=== PATIENT | female | born 1965 | race Caucasian/White ===

== ENCOUNTER 2017-12-17 14:46 | Inpatient (IN) | payer OTHER ==
[2017-12-17 16:00] LABS: #Eosinphils 0.1 thou/uL (0.0-0.7); #Lymphocytes 2.2 thou/uL (1.20-3.40); #Monocytes 0.6 thou/uL (0.11-0.59); #Neutrophils 4.2 thou/uL (1.40-6.50); %Basophils 0.6 % (0.0-1.0); %Eosinophils 1.6 % (0.0-10.0); %Lymphocytes 31.2 % (21.0-51.0); %Monocytes 7.9 % (0.0-10.0); %Neutrophils 58.7 % (42.0-75.0); Hemoglobin 15.2 g/dL (12.0-16.0); Mean Corpuscular HGB CONC 35.7 g/dL (32.0-36.0); Mean Corpuscular Volume 83.8 fL (78.0-98.0); Mean Platelet Volume 8.7 fL (7.4-10.4); Platelet Count 241 thou/uL (130-400); Red Blood Cell (RBC) Count 5.08 mill/uL (4.20-5.40); White Blood Cell (WBC) Count 7.1 thou/uL (4.8-10.8)
[2017-12-17 16:09] LABS: ALT (SGPT) 36 U/L (8-55); AST (SGOT) 28 U/L (5-34); Albumin 4.2 g/dL (3.5-5.0); Alkaline Phosphatase 91 U/L (40-150); Anion Gap 14 mmol/L (10-20); BUN (Urea Nitrogen) 11 mg/dL (9.8-20.1); Bilirubin, Total 0.5 mg/dL (0.2-1.2); Calc. Creatinine Clearance 0 mL/min (70-130); Calcium 9.6 mg/dL (7.8-10.44); Carbon Dioxide 23 mmol/L (22-29); Chloride 104 mmol/L (98-107); Estimated GFR-MDRD 74; Globulin 3.1 g/dL (2.4-3.5); Glucose 107 mg/dL (70-105); Potassium 3.4 mmol/L (3.5-5.1); Protein, Total 7.3 g/dL (6.0-8.3); Sodium 138 mmol/L (136-145)
[2017-12-17 16:12] LABS: CKMB 0.5 ng/mL (0-6.6); Troponin I Less than 0.010 ng/mL (< 0.028)
[2017-12-17 16:21] LABS: Bilirubin Negative (Negative); Blood, Urine Negative (Negative); Clarity Clear (Clear); Glucose, Urine (Dipstick) Negative (Negative); Leukocyte Negative (Negative); Nitrite Negative (Negative); Protein, Urine (Dipstick) Negative (Neg-Trace); Urobilinogen 0.2 mg/dL (0.2-1.0)
[2017-12-17] MEDS ORDERED: Acetaminophen 500 MG TAB ONE (17:11)
[2017-12-17] MEDS ORDERED: IMMUNE GLOBULIN FS SCH (19:00)
--- NOTE | 2017-12-17 19:52 | CT ---
CT BRAIN NONCONTRAST: 12/17/17 HISTORY: 52-year-old female with "progressive ascending weakness." FINDINGS: There is no midline shift or any other mass effect. There is no evidence of acute intracranial hemor rhage, large cortical infarct, obstructive hydrocephalus, or extraaxial fluid collection. The calvar ium is intact. IMPRESSION: No acute intracranial findings. jn [] POS: [facility]
[2017-12-17 20:09] VITALS: BMI 30.1
[2017-12-17] MEDS: OCTAGAM 10% 60 GM, OCTAGAM 10% 10 GM in Premix Bag 1 BAG IVPB SCH (21:20)
[2017-12-18 04:31] LABS: Anion Gap 11 mmol/L (10-20); BUN (Urea Nitrogen) 11 mg/dL (9.8-20.1); Calc. Creatinine Clearance 90 mL/min (70-130); Calcium 8.9 mg/dL (7.8-10.44); Carbon Dioxide 23 mmol/L (22-29); Cardiac Risk 4.9 (Less than 4.5); Chloride 100 mmol/L (98-107); Cholesterol 170 mg/dl (< 200 Desired); Estimated GFR-MDRD 61; Glucose 120 mg/dL (70-105); HDL Cholesterol 35 mg/dL (>60 Neg Risk); LDL Cholesterol, Calculated 123 mg/dL; Potassium 3.4 mmol/L (3.5-5.1); Sodium 131 mmol/L (136-145); Triglycerides 58 mg/dL (Less than 150)
[2017-12-18 06:47] LABS: #Eosinphils 0.1 thou/uL (0.0-0.7); #Lymphocytes 0.7 thou/uL (1.20-3.40); #Monocytes 0.5 thou/uL (0.11-0.59); #Neutrophils 4.4 thou/uL (1.40-6.50); %Basophils 0.4 % (0.0-1.0); %Eosinophils 1.5 % (0.0-10.0); %Monocytes 9.2 % (0.0-10.0); %Neutrophils 76.9 % (42.0-75.0); Hemoglobin 13.3 g/dL (12.0-16.0); Mean Corpuscular HGB CONC 32.9 g/dL (32.0-36.0); Mean Corpuscular Hemoglobin 29.3 pg (27.0-31.0); Platelet Count 179 thou/uL (130-400); RBC Distribution Width 11.5 % (11.5-14.5); Red Blood Cell (RBC) Count 4.53 mill/uL (4.20-5.40); White Blood Cell (WBC) Count 5.7 thou/uL (4.8-10.8)
--- NOTE | 2017-12-18 08:06 | HP ---
TIME OF EVALUATION: 8:00 p.m. PRIMARY CARE PHYSICIAN: Dr. Marian Camarena. CODE STATUS: FULL CODE. CHIEF COMPLAINT: "Severe weakness in my legs and being unable to walk." HISTORY OF PRESENT ILLNESS: This is a 52-year-old female patient with past medical history of mening itis when she was 28 years old, asthma, came to the hospital after having severe bilateral leg weakne ss, patient has been unable to walk, being very difficult to stand up. The weakness started for the past week, it has been getting worse gradually, with no clear triggers except that patient got flu sh ot on the and also having a week of diarrhea for 5 days, symptoms are severe, no alleviating fac tors. The patient was seen in the ER. Neurology was consulted and there is concern for GBS. Harsha salgado has been admitted to the hospital to receive IVIG. We will follow Neurology recommendations. REVIEW OF SYSTEMS: No fever, chills, or generalized weakness. Respiratory: No cough, sputum produc tion, or shortness of breath. Cardiovascular: No chest pain or palpitation. Gastrointestinal: No nausea or vomiting. The patient had diarrhea the past week that has stopped for now. No abdominal p ain. Central Nervous Systems: No dizziness, headache, or feeling lightheaded. Patient has been kat ble to walk due to severe bilateral lower extremity weakness. Genitourinary: No burning on urinatio n. Extremities: No leg swelling. All other systems were reviewed and negative except for the findi ngs mentioned above. PAST MEDICAL HISTORY: As mentioned in the HPI. PAST SURGICAL HISTORY: Orthopedic surgery right wrist, cholecystectomy, tonsillectomy, left breast l umpectomy. PSYCHIATRIC HISTORY: Anxiety and depression. SOCIAL HISTORY: No drugs. No smoking history. KNOWN ALLERGIES: PENICILLIN, reaction with rash. REPORTED MEDICATIONS: Wellbutrin, Singulair, Astelin, Calcitrate. PHYSICAL EXAMINATION: VITAL SIGNS: On presentation, blood pressure 155/108 with heart rate 100, respiratory rate 20, tempe rature 98.8, pain 6/10, oxygen saturation 98. GENERAL APPEARANCE: The patient is alert, oriented, not in any acute distress. HEENT: Eyes: normal conjunctivae. Moist oral mucosa. Anicteric. NECK: No JVD. RESPIRATORY: Bilateral air entry. No rales, no wheezes. Symmetric expansion. CARDIOVASCULAR: Normal rate, regular rhythm. No murmurs, no gallops. EXTREMITIES: No edema. ABDOMEN: Soft, normal bowel sounds. MUSCULOSKELETAL: Baseline range of motion and strength. No tenderness. Peripheral pulses are prese nt. Capillary refill seems to be intact. SKIN: Warm and intact. No pallor, no rash, no redness. NEUROLOGIC: Baseline sensory. The patient has bilateral lower extremities and some degree upper ext remity weakness. Speech is normal. Cranial nerves seem to be intact. PSYCHIATRIC: The patient is in a good mood. No anxiety. Oriented, optimal judgment. IMAGING: EKG was reviewed. The patient has normal sinus rhythm at the rate of 77, NE 148. No evide nce of any acute ischemic findings. CT brain, no acute intracranial findings. LABORATORY DATA: White count 7.1, hemoglobin 15.2, MCV 83.8. Chemistry: Sodium 138, potassium 3.4, chloride 104, carbon dioxide 23, anion gap 14, BUN 11, creatinine 0.8, GFR 74, glucose 107, calcium 9.6, total bilirubin 0.5, AST 28, ALT 36, alkaline phosphatase 91. Troponin was negative. Albumin w as normal. Urine was negative. ASSESSMENT AND PLAN: The patient will be placed in the hospital with following medical problems: 1. 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 Patient has bilateral lower and some degree upper extremity we akness, with inability to walk properly. Neuro has been consulted for further recommendation. The p atient receiving IVIG for now. We will do rest of stroke protocol looking for any diagnosis in the d ifferential. 2. Recent history of diarrhea. We will test stools if diarrhea is still present. Looking specifica lly for Campylobacter given association with Guillain-[place] syndrome. We will treat accordingly. 3. History of asthma, this is currently stable, no need for intubation. 4. Deep venous thrombosis prophylaxis. 5. Risk assessment: The patient has risk to severe acute neurological changes began on of this month.
[2017-12-18] MEDS: Ondansetron HCl/PF 4 MG/2 ML Vial IVP PRN ×2 (08:35→19:17)
[2017-12-18] MEDS: Acetaminophen 325 MG TAB PO PRN ×2 (08:35→20:38)
[2017-12-18] MEDS ORDERED: Enoxaparin Sodium 40 MG/0.4 ML SYRINGE SC SCH (09:00)
[2017-12-18] MEDS: ALPRAZolam 0.25 MG TAB PO PRN ×3 (10:21→20:38)
[2017-12-18] MEDS ORDERED: Bupropion 150 MG XL TAB PO SCH (10:30)
--- NOTE | 2017-12-18 11:21 | RAD ---
PORTABLE CHEST: History: Asthma. FINDINGS: Heart size and mediastinum are within normal limits. The lungs are clear of infiltrates. No significa nt bony findings. IMPRESSION: No active intrathoracic disease. POS: [facility]
--- NOTE | 2017-12-18 13:21 | MRI ---
MRI BRAIN: 12/18/2017 PROVIDED CLINICAL HISTORY: TIA. FINDINGS: The ventricular system appears normal in size and morphology. There is no evidence for intracranial hemorrhage or mass effect. The extracranial soft tissues and osseous structures demonstrate an unrem arkable MR appearance. No evidence for restricted diffusion to suggest a recent infarction. Appropr iate flow voids are seen within the major intracranial vessels. No shift of the midline structures. The basilar cisterns appear patent. There is a single, nonspecific, punctate focus of FLAIR and T2 signal alteration within the right caceres radiata, which may reflect chronic microvascular ischemic c hange. IMPRESSION: No evidence for restricted diffusion to suggest recent infarction. POS: [facility]
--- NOTE | 2017-12-18 14:09 | CON ---
DATE OF CONSULTATION: 12/18/2017 HISTORY OF PRESENT ILLNESS: Ms. Kim Cisse is a pleasant 52-year-old female who has a very inte resting history, presented with lower extremity weakness, gradually progressive course of about 2 wee ks. On of this morning, she got the flu shot. On the of this month, November, she got ve rtigo, nausea, sinus infection and took a course of Z-Kris and meclizine. On the , she got diarrh ea several times and became weak. On the several days later, she has had difficulty walking in the campus. 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 She became weak, fatigued, weakness in the legs, some numbness. She went to see a primary care physi yesenia, Dr. Camarena, a West Nile titer was ordered. On the , symptoms got progressively worse. She had further tingling and lower extremity weakness, she went back and was told to go to the ER. As of yesterday morning, she ER, but apparently weakness progressed upwards to which she says she zhang d difficulty walking and was unable to lift the legs up from the bed. Last night, she received a dose of IVIG. Neurology was consulted. They have yet to see the patient. PAST MEDICAL HISTORY: Extensively outlined. She has had multiple allergies, apparently has asthma, anxiety, depression. PAST SURGICAL HISTORY: Right wrist surgery, cholecystectomy, tonsillectomy, left breast lumpectomy. ALCOHOL: Minimal. TOBACCO: None. CHRONIC MEDICATIONS: Singulair 10, Wellbutrin 150, azelastine spray several times a day. ALLERGIES: PENICILLIN. SOCIAL HISTORY: Works for the [employer]. REVIEW OF SYSTEMS: A 10-point negative. PHYSICAL EXAMINATION: GENERAL: Awake, alert and responsive, in no distress. VITAL SIGNS: Sats are 95%, respiration 12, temperature 98, pulse 80, blood pressure is 139/78. CHEST: Decreased breath sounds without any wheezing. CARDIAC: Normal S1, S2, no gallops. ABDOMEN: Soft, no masses. LABORATORY DATA: Sodium 131. Electrolytes are normal. Potassium 5.7. IMAGING: She had a CT of the brain done last night, which showed no intracranial process. IMPRESSION: 1. Ascending paralysis, received IVIG last night with marked improvement. 2. History of depression. 3. History of allergic rhinitis. 4. Have recent flu shot intake. 5. Depression. PLAN: Continue 5 days IVIG, Lovenox, deep venous thrombosis prophylaxis. PT and supportive care. Serial exam. We will follow. This is a consultation note of 70 minutes, in which 50% spent in direct patient care.
[2017-12-18 19:42] LABS: CSF Source CSF; Clarity Clear (Clear); RBC Count - Manual 383 /cumm (None Seen); Tube # 4; WBC/NonHematics Count - Manual 0 /cumm (0-5)
[2017-12-18 19:54] LABS: CSF, Glucose 62 mg/dl (40-70); CSF, Protein 23 mg/dL (15-40)
[2017-12-18 20:58] LABS: Color Of CSF Supernatant COLORLESS (Colorless); Tube # 2; Unspun CSF Color COLORLESS (Colorless)
[2017-12-18] MEDS: OCTAGAM 10% 60 GM, OCTAGAM 10% 10 GM in Premix Bag 1 BAG IVPB SCH (21:00)
--- NOTE | 2017-12-18 21:14 | CON ---
DATE OF CONSULTATION: 12/18/2017 CONSULTING PHYSICIAN: Hospitalist Service. 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 PLAN: 1. Continue IVIG as ordered. 2. Lumbar puncture for routine measurements of cell count, glucose, protein, and viral studies inclu ding herpes and West Nile. Ms. Cisse is a 52-year-old white female with no significant past problems. She recently has had a diarrheal illness that preceded the development of some tingling in her feet. The tingling progresse d up the legs to about the knee level. She noticed a bit of tingling in her hands. She noticed that she was having more trouble walking across campus. She decided to go to the emergency room, which s he walked into. By the time her evaluation was complete, she was unable to walk any longer in an ind ependent fashion. She was transferred here last night and started on gamma globulin. She reports th at she has seen an improvement in her leg strength compared to last night. The tingling in her hands has gotten better. She denies any tingling around the face, difficulty swallowing, shortness of ewa ath, double vision, vertigo, or headache. PAST MEDICAL HISTORY: Otherwise negative. ALLERGIES: PENICILLIN. SOCIAL HISTORY: No tobacco or alcohol use. FAMILY HISTORY: Noncontributory. REVIEW OF SYSTEMS: No incontinence. PHYSICAL EXAMINATION: GENERAL: She is a well-nourished, middle-aged woman in no distress. VITAL SIGNS: Stable. She is afebrile. HEENT: Pupils are equal and reactive. Conjunctivae clear. Oropharynx clear. NECK: Supple. SKIN: Clear. EXTREMITIES: No cyanosis. NEUROLOGIC: She is alert and appropriate. Her speech is fluent and clear. Cranial nerves II-XII ar e intact. Motor exam shows some minimal give-way weakness in the upper extremities. There is more s ignificant distal weakness in both legs involving ankle flexion, toe extension, plantar flexion in th e range of 3/5. Reflexes at the ankles are absent, 2+ at the knees and elbows. Plantar responses we re downgoing. Gait was not tested. No abnormal movements were seen. Sensory testing shows diminish ed sharp touch in the feet bilaterally. EKG, normal sinus rhythm. Lumbar puncture is pending. 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 I agree with continuing treatment and performing a lumbar puncture to confirm an elevation of the protein and lack of white c ell elevation to suggest an infectious process.
--- NOTE | 2017-12-18 21:28 | PDOC.PN ---
- Subjective Encounter Start Date: 12/18/17 Encounter Start Time: 10:00 Patient seen and examined for GB syndrome. LE strenth and tingling improving after IVIG. No new focal deficits. No diarrhea. - Objective Resuscitation Status: Resuscitation Status FULL:Full Resuscitation MAR Reviewed: Yes Vital Signs & Weight: Vital Signs (12 hours) Temp Pulse Resp BP Pulse Ox 12/18/17 15:52 97.7 F 78 12 141/76 H 97 12/18/17 11:35 98.1 F 77 14 134/87 93 L Weight Weight 186 lb 7 oz I&O: 12/17/17 12/18/17 12/19/17 06:59 06:59 06:59 Intake Total 700 Output Total 225 Balance 475 Result Diagrams: 12/18/17 03:46 12/19/17 04:46 Additional Labs: Accuchecks 12/18/17 01:55 POC Glucose 122 H EKG Reviewed by me: Yes (Tele SR) Phys Exam - Physical Examination Constitutional: NAD Respiratory: no wheezing, no rhonchi Cardiovascular: RRR, no rub Gastrointestinal: soft, non-tender, positive bowel sounds Musculoskeletal: no edema Neurological: moves all 4 limbs Dx/Plan - Plan DVT proph w/SCDs IMPRESSION: 1. GB syndrome - improving with IVIG 2. Recent diarrhea - resolved 3. Mild intermittent Asthma 4. Obesity BMI 30.1 5. Anxiety/Depression 6. Hypokalemia PLAN: Cont IVIG per Neuro MRI pending LP? Resume home meds Replace Potassium Cont other meds as below Review of Systems - Review of Systems Respiratory: negative: Cough, Dry, Shortness of Breath, Hemoptysis, SOB with Excertion, Pleuritic Pain, Sputum, Wheezing Cardiovascular: negative: chest pain, palpitations, orthopnea, paroxysmal nocturnal dyspnea, edema, light headedness, other - Medications/Allergies Allergies/Adverse Reactions: Allergies Allergy/AdvReac Type Severity Reaction Status Date / Time Penicillins Allergy Verified 12/17/17 21:31 Medications: Current Medications Acetaminophen (Tylenol) 650 mg PO Q4H PRN PRN Reason: Headache/Fever or Pain Last Admin: 12/18/17 20:38 Dose: 650 mg Alprazolam (Xanax) 0.25 mg PO TIDPRN PRN PRN Reason: Anxiety Last Admin: 12/18/17 20:38 Dose: 0.25 mg Azelastine HCl (Azelastine) 0 ml NS DAILY [facility] Bupropion HCl (Wellbutrin Xl) 150 mg PO DAILY [facility] Fluticasone Propionate (Flonase Nasal [place]) 0 gm NASAL DAILY [facility] Montelukast Sodium (Singulair) 10 mg PO DAILY [facility] Ondansetron HCl (Zofran) 4 mg IVP Q6H PRN PRN Reason: Nausea/Vomiting Last Admin: 12/18/17 19:17 Dose: 4 mg Sodium Chloride (Flush - Normal Saline) 10 ml IVF PRN PRN PRN Reason: Saline Flush Last Admin: 12/17/17 21:21 Dose: 10 ml
--- NOTE | 2017-12-18 21:58 | RAD ---
FLUOROSCOPIC GUIDED LUMBAR PUNCTURE 12/18/17 HISTORY: Patient with neurological deficits and involving the lower extremities with progressive ascending wea kness. FLUOROSCOPY: Total fluoroscopy time is 0.4 seconds. Total dose of 33.6 uGy*m2. TECHNIQUE: The procedure including risks and complications were explained to the patient and informed consent wa s obtained. The patient was placed on the fluoroscopy table in the prone position. An area overlying the L2-3 level was marked, and the area was then meticulously prepped and draped in the usual sterile fashion. Skin and subcutaneous tissues were infiltrated with buffered 1% lidocaine for local anesthe pauline. Utilizing fluoroscopic guidance, a 22 gauge spinal needle was advanced into the thecal sac. Todd janet of the inner stylet demonstrated return of clear cerebrospinal fluid. Approximately 7 mL of clear straw colored fluid was aspirated. Opening pressure of approximately 15 cm of water was obtained. The inner stylet was replaced, the needle was removed. Hemostasis was achieved with direct pressure a nd a dry sterile dressing was placed. The patient tolerated the procedure well without immediate complication. FINDINGS: Technically successful fluoroscopic guided lumbar puncture at the L2-3 level. Approximately 7 mL of c lear straw colored fluid was aspirated and sent for labs. An opening pressure of 15 cm of water was o btained. FINDINGS: There is right convex rotoscoliosis of the thoracolumbar spine. Mild degenerative changes are seen in the lower lumbar spine and suggestion of trace anterolisthesis of L4 on L5. Facet degenerative ornelas es are noted. Surgical clips overlie the right upper quadrant. IMPRESSION: Technically successful fluoroscopic guided lumbar puncture. POS: [facility]
[2017-12-19] MEDS: Acetaminophen 325 MG TAB PO PRN ×3 (01:12→15:34)
[2017-12-19] MEDS: Ondansetron HCl/PF 4 MG/2 ML Vial IVP PRN (05:03)
[2017-12-19 05:20] LABS: Anion Gap 7 mmol/L (10-20); BUN (Urea Nitrogen) 10 mg/dL (9.8-20.1); Calc. Creatinine Clearance 82 mL/min (70-130); Calcium 8.8 mg/dL (7.8-10.44); Carbon Dioxide 26 mmol/L (22-29); Chloride 100 mmol/L (98-107); Estimated GFR-MDRD 55; Glucose 115 mg/dL (70-105); Magnesium 1.8 mg/dL (1.6-2.6); Potassium 3.3 mmol/L (3.5-5.1); Sodium 130 mmol/L (136-145)
[2017-12-19] MEDS ORDERED: NS 0.9% w/ 40 MEQ KCL 1,000 ML IV SCH (07:00)
[2017-12-19] MEDS ORDERED: Metoclopramide HCl 10 MG/2 ML VIAL IVP PRN (07:16)
[2017-12-19] MEDS ORDERED: Potassium Chloride 20 MEQ TAB PO SCH (08:00)
[2017-12-19] MEDS: Montelukast Sodium 10 mg Tablet PO SCH (08:30)
[2017-12-19] MEDS: Bupropion 150 MG XL TAB PO SCH (08:30)
[2017-12-19] MEDS: Ketorolac Tromethamine 30 MG/ML VIAL IVP PRN ×3 (08:30→21:07)
[2017-12-19] MEDS: Dextrose 5 % And 0.9 % NaCl 1,000 ML IV SCH ×3 (08:31→21:06)
[2017-12-19] MEDS: Azelastine 137 MCG/Spray 30 ML NS SCH (08:32)
[2017-12-19] MEDS: Fluticasone Propionate Nasal Spray 16 gm Bottle NASAL SCH (08:32)
--- NOTE | 2017-12-19 09:35 | CON ---
DATE OF NOTE: 12/19/2017 Ms. Cisse had a spinal tap last night. The CSF fluid did not reveal any significant changes includ ing any elevation of her protein. Unfortunately, she developed a severe headache overnight. The int ensity of the headache is somewhat better when she is lying down. The vital signs have been stable a nd she has been afebrile. Subjectively, she feels like her strength is better on exam, there seems t o be improvement in her lower extremity strength compared to last night. She completed her last dose of IVIG. I am suspicious she may have a spinal leak headache. I am going to treat her with IV flui ds and Toradol and see how she responds today. She may require a blood patch if the situation does n ot improve. Her Guillain-[place] syndrome appears to be responding to IVIG and therefore hopefully she will be able to regain her ability to walk and be discharged shortly once the headache situation is improved.
--- NOTE | 2017-12-19 12:47 | PRG ---
DATE OF SERVICE: 12/19/2017 SUBJECTIVE: This morning, the patient is having severe headache probably from the spinal tap. MRI was negative. CSF was unremarkable. Less short of breath. OBJECTIVE: VITAL SIGNS: Her blood pressure is 106/75, sats are 98% on room air, respiration rate 18, temperature is 98_. CHEST: No wheezing, crackles. CARDIAC: Normal S1, S2, no gallops. ABDOMEN: Soft. No masses. LABORATORY DATA: Sodium 130, otherwise rest of the labs are unremarkable. IMPRESSION: 1. Ascending paralysis consistent with a GB ON_ 5 days of IVIG. 2. Hyponatremia, negative spinal tap. PLAN: Continue PT and supportive care. We will follow. MTDD
[2017-12-19] MEDS: ALPRAZolam 0.25 MG TAB PO PRN ×2 (15:34→21:07)
[2017-12-19] MEDS ORDERED: OCTAGAM 10% 60 GM, OCTAGAM 10% 10 GM in Premix Bag 1 BAG IVPB SCH (21:00)
--- NOTE | 2017-12-19 22:03 | PDOC.PN ---
- Subjective Encounter Start Date: 12/19/17 Encounter Start Time: 17:00 Patient seen and examined for GB syndrome. Cont to have intractable headache - No vision issues. No new focal deficits. LE strength improving. No other complaints. No overnight events - Objective Resuscitation Status: Resuscitation Status FULL:Full Resuscitation MAR Reviewed: Yes Vital Signs & Weight: Vital Signs (12 hours) Temp Pulse Pulse Pulse Resp BP BP 12/19/17 15:33 97.8 F 70 19 12/19/17 14:10 97 95 150/87 H 145/80 H 12/19/17 11:21 97.2 F L 76 27 H BP Pulse Ox 12/19/17 15:33 143/81 H 100 12/19/17 14:10 12/19/17 11:21 103/70 97 Weight Weight 186 lb 7 oz I&O: 12/18/17 12/19/17 12/20/17 06:59 06:59 06:59 Intake Total 1640 Output Total 775 Balance 865 Result Diagrams: 12/20/17 03:48 12/20/17 03:48 Additional Labs: Laboratory Tests 12/18/17 12/18/17 12/18/17 03:46 18:56 18:56 Potassium 3.4 L Magnesium LDL Cholesterol, Calc 123 Fluid Color Colorless Fluid Clarity Clear Fluid RBC (Manual) 383 H CSF Color COLORLESS CSF Supernatant Color COLORLESS CSF Glucose 62 CSF Total Protein 23 12/19/17 04:46 Potassium 3.3 L Magnesium 1.8 LDL Cholesterol, Calc Fluid Color Fluid Clarity Fluid RBC (Manual) CSF Color CSF Supernatant Color CSF Glucose CSF Total Protein EKG Reviewed by me: Yes (Tele SR) Phys Exam - Physical Examination Constitutional: NAD Respiratory: no wheezing, no rhonchi Cardiovascular: RRR, no rub Gastrointestinal: soft, non-tender, positive bowel sounds Musculoskeletal: no edema Neurological: moves all 4 limbs Dx/Plan - Plan DVT proph w/SCDs IMPRESSION: 1. GB syndrome - improving s/p IVIG 2. Recent diarrhea - resolved 3. Mild intermittent Asthma 4. Obesity BMI 30.1 5. Anxiety/Depression 6. Hypokalemia PLAN: IVIG per Neuro MRI negative Replace Potassium Cont to monitor Transfer to stroke unit Cont other meds as below AM labs Review of Systems - Review of Systems Respiratory: negative: Cough, Dry, Shortness of Breath, Hemoptysis, SOB with Excertion, Pleuritic Pain, Sputum, Wheezing Cardiovascular: negative: chest pain, palpitations, orthopnea, paroxysmal nocturnal dyspnea, edema, light headedness, other - Medications/Allergies Allergies/Adverse Reactions: Allergies Allergy/AdvReac Type Severity Reaction Status Date / Time Penicillins Allergy Verified 12/17/17 21:31 Medications: Current Medications Acetaminophen (Tylenol) 650 mg PO Q4H PRN PRN Reason: Headache/Fever or Pain Last Admin: 12/19/17 15:34 Dose: 650 mg Alprazolam (Xanax) 0.25 mg PO TIDPRN PRN PRN Reason: Anxiety Last Admin: 12/19/17 21:07 Dose: 0.25 mg Azelastine HCl (Azelastine) 0 ml NS DAILY [facility] Last Admin: 12/19/17 08:32 Dose: 1 spr Bupropion HCl (Wellbutrin Xl) 150 mg PO DAILY [facility] Last Admin: 12/19/17 08:30 Dose: 150 mg Fluticasone Propionate (Flonase Nasal [place]) 0 gm NASAL DAILY [facility] Last Admin: 12/19/17 08:32 Dose: 1 spr Dextrose/Sodium Chloride (D5 0.9% Ns) 1,000 mls @ 150 mls/hr IV .[id number] [facility] Last Admin: 12/19/17 21:06 Dose: 1,000 mls Ketorolac Tromethamine (Toradol) 30 mg IVP Q6H PRN PRN Reason: Pain Stop: 12/24/17 07:16 Last Admin: 12/19/17 21:07 Dose: 30 mg Metoclopramide HCl (Reglan) 10 mg IVP Q6H PRN PRN Reason: Nausea Last Admin: 12/19/17 08:31 Dose: 10 mg Montelukast Sodium (Singulair) 10 mg PO DAILY [facility] Last Admin: 12/19/17 08:30 Dose: 10 mg Ondansetron HCl (Zofran) 4 mg IVP Q6H PRN PRN Reason: Nausea/Vomiting Last Admin: 12/19/17 05:03 Dose: 4 mg Sodium Chloride (Flush - Normal Saline) 10 ml IVF PRN PRN PRN Reason: Saline Flush Last Admin: 12/17/17 21:21 Dose: 10 ml
[2017-12-20] MEDS: Dextrose 5 % And 0.9 % NaCl 1,000 ML IV SCH ×3 (03:40→11:00)
[2017-12-20 04:09] LABS: #Eosinphils 0.1 thou/uL (0.0-0.7); #Monocytes 0.3 thou/uL (0.11-0.59); #Neutrophils 1.3 thou/uL (1.40-6.50); %Basophils 0.7 % (0.0-1.0); %Eosinophils 2.5 % (0.0-10.0); %Lymphocytes 37.8 % (21.0-51.0); %Monocytes 10.6 % (0.0-10.0); %Neutrophils 48.4 % (42.0-75.0); Hemoglobin 12.5 g/dL (12.0-16.0); Mean Corpuscular HGB CONC 34.6 g/dL (32.0-36.0); Mean Corpuscular Hemoglobin 31.1 pg (27.0-31.0); Mean Corpuscular Volume 89.9 fL (78.0-98.0); Mean Platelet Volume 7.9 fL (7.4-10.4); Platelet Count 171 thou/uL (130-400); RBC Distribution Width 11.4 % (11.5-14.5); Red Blood Cell (RBC) Count 4.03 mill/uL (4.20-5.40); White Blood Cell (WBC) Count 2.6 thou/uL (4.8-10.8)
[2017-12-20 04:28] LABS: Anion Gap 7 mmol/L (10-20); BUN (Urea Nitrogen) 8 mg/dL (9.8-20.1); Calc. Creatinine Clearance 99 mL/min (70-130); Calcium 8.3 mg/dL (7.8-10.44); Carbon Dioxide 24 mmol/L (22-29); Chloride 107 mmol/L (98-107); Estimated GFR-MDRD 68; Glucose 113 mg/dL (70-105); Potassium 3.4 mmol/L (3.5-5.1); Sodium 135 mmol/L (136-145)
[2017-12-20] MEDS: Ketorolac Tromethamine 30 MG/ML VIAL IVP PRN ×2 (08:05→21:24)
[2017-12-20] MEDS: Fluticasone Propionate Nasal Spray 16 gm Bottle NASAL SCH (09:42)
[2017-12-20] MEDS: Azelastine 137 MCG/Spray 30 ML NS SCH (09:42)
[2017-12-20] MEDS: Potassium Chloride 20 MEQ TAB PO SCH (09:43)
[2017-12-20] MEDS: Montelukast Sodium 10 mg Tablet PO SCH (09:43)
[2017-12-20] MEDS: Bupropion 150 MG XL TAB PO SCH (09:43)
[2017-12-20] MEDS: ALPRAZolam 0.25 MG TAB PO PRN ×2 (09:47→18:22)
--- NOTE | 2017-12-20 12:49 | PDOC.PN ---
- Subjective Encounter Start Date: 12/20/17 Encounter Start Time: 10:00 Patient seen and examined for GB syndrome. No new complaints. Weakness improving. No overnight events. Headache improving. - Objective Resuscitation Status: Resuscitation Status FULL:Full Resuscitation MAR Reviewed: Yes Vital Signs & Weight: Vital Signs (12 hours) Temp Pulse Resp BP Pulse Ox 12/20/17 12:24 98.5 F 62 20 167/95 H 98 12/20/17 08:00 98.3 F 77 12 155/97 H 96 12/20/17 04:00 98.4 F 60 16 145/91 H 99 Weight Weight 186 lb 7 oz I&O: 12/19/17 12/20/17 12/21/17 06:59 06:59 06:59 Intake Total 1640 300 Output Total 775 Balance 865 300 Result Diagrams: 12/20/17 03:48 12/20/17 03:48 EKG Reviewed by me: Yes (Tele SR) Phys Exam - Physical Examination Constitutional: NAD Respiratory: no wheezing, no rhonchi Cardiovascular: RRR, no rub Gastrointestinal: soft, non-tender, positive bowel sounds Musculoskeletal: no edema Neurological: non-focal, moves all 4 limbs No new focal deficits. LE strength improving Psychiatric: A&O x 3 Dx/Plan - Plan DVT proph w/SCDs IMPRESSION: 1. GB syndrome - improving, s/p 2 doses of IVIG 2. Recent diarrhea - resolved 3. Mild intermittent Asthma 4. Obesity BMI 30.1 5. Anxiety/Depression 6. Hypokalemia PLAN: Replace Potassium No further IVIG per Neuro Cont to monitor Cont Wellbutrin/Sunguilar Cont other meds as below AM labs Review of Systems - Review of Systems Respiratory: negative: Cough, Dry, Shortness of Breath, Hemoptysis, SOB with Excertion, Pleuritic Pain, Sputum, Wheezing Cardiovascular: negative: chest pain, palpitations, orthopnea, paroxysmal nocturnal dyspnea, edema, light headedness, other - Medications/Allergies Allergies/Adverse Reactions: Allergies Allergy/AdvReac Type Severity Reaction Status Date / Time Penicillins Allergy Verified 12/17/17 21:31 Medications: Current Medications Acetaminophen (Tylenol) 650 mg PO Q4H PRN PRN Reason: Headache/Fever or Pain Last Admin: 12/19/17 15:34 Dose: 650 mg Alprazolam (Xanax) 0.25 mg PO TIDPRN PRN PRN Reason: Anxiety Last Admin: 12/20/17 09:47 Dose: 0.25 mg Azelastine HCl (Azelastine) 0 ml NS DAILY [facility] Last Admin: 12/20/17 09:42 Dose: 1 spr Bupropion HCl (Wellbutrin Xl) 150 mg PO DAILY [facility] Last Admin: 12/20/17 09:43 Dose: 150 mg Fluticasone Propionate (Flonase Nasal [place]) 0 gm NASAL DAILY [facility] Last Admin: 12/20/17 09:42 Dose: 1 spr Dextrose/Sodium Chloride (D5 0.9% Ns) 1,000 mls @ 70 mls/hr IV .[id number] [facility] Last Admin: 12/20/17 11:00 Dose: 1,000 mls Ketorolac Tromethamine (Toradol) 30 mg IVP Q6H PRN PRN Reason: Pain Stop: 12/24/17 07:16 Last Admin: 12/20/17 08:05 Dose: 30 mg Metoclopramide HCl (Reglan) 10 mg IVP Q6H PRN PRN Reason: Nausea Last Admin: 12/19/17 08:31 Dose: 10 mg Montelukast Sodium (Singulair) 10 mg PO DAILY [facility] Last Admin: 12/20/17 09:43 Dose: 10 mg Ondansetron HCl (Zofran) 4 mg IVP Q6H PRN PRN Reason: Nausea/Vomiting Last Admin: 12/19/17 05:03 Dose: 4 mg Potassium Chloride (K-Dur) 20 meq PO QAM-WM [facility] Stop: 12/21/17 08:01 Last Admin: 12/20/17 09:43 Dose: 20 meq Sodium Chloride (Flush - Normal Saline) 10 ml IVF PRN PRN PRN Reason: Saline Flush Last Admin: 12/17/17 21:21 Dose: 10 ml
[2017-12-20] MEDS: Ondansetron HCl/PF 4 MG/2 ML Vial IVP PRN (18:18)
--- NOTE | 2017-12-20 21:11 | PRG ---
DATE OF SERVICE: 12/20/2017 SUBJECTIVE: She was walking to the bathroom using her walker. She says 2 days ago she could not wal k. OBJECTIVE: VITAL SIGNS: Mr. Cisse is afebrile, heart rate is 94, respiratory rate is 20, oximetry is 100% on room air, blood pressure 148/89. LUNGS: Clear. HEART: Regular rhythm. LABORATORY DATA: White count 3.6, hemoglobin 12.5, platelets 171,000. Sodium 135, potassium 3.4, ch loride 107, bicarbonate 24, BUN 8, creatinine 0.87. IMPRESSION: Guillain-[place], slowly improving. She has no respiratory compromise at this time. We w ill continue to follow.
[2017-12-21] MEDS: Dextrose 5 % And 0.9 % NaCl 1,000 ML IV SCH ×2 (00:25→15:10)
[2017-12-21 04:53] LABS: #Lymphocytes 0.7 thou/uL (1.20-3.40); #Monocytes 0.1 thou/uL (0.11-0.59); #Neutrophils 1.9 thou/uL (1.40-6.50); %Basophils 1.6 % (0.0-1.0); %Eosinophils 0.2 % (0.0-10.0); %Lymphocytes 25.6 % (21.0-51.0); %Monocytes 2.7 % (0.0-10.0); Hemoglobin 13.6 g/dL (12.0-16.0); Mean Corpuscular HGB CONC 34.1 g/dL (32.0-36.0); Mean Corpuscular Hemoglobin 30.6 pg (27.0-31.0); Mean Corpuscular Volume 89.7 fL (78.0-98.0); Mean Platelet Volume 8.4 fL (7.4-10.4); Platelet Count 167 thou/uL (130-400); RBC Distribution Width 11.2 % (11.5-14.5); Red Blood Cell (RBC) Count 4.43 mill/uL (4.20-5.40); White Blood Cell (WBC) Count 2.7 thou/uL (4.8-10.8)
[2017-12-21 05:10] LABS: Anion Gap 11 mmol/L (10-20); BUN (Urea Nitrogen) 10 mg/dL (9.8-20.1); Calc. Creatinine Clearance 101 mL/min (70-130); Calcium 9.1 mg/dL (7.8-10.44); Carbon Dioxide 18 mmol/L (22-29); Chloride 106 mmol/L (98-107); Estimated GFR-MDRD 70; Glucose 162 mg/dL (70-105); Potassium 3.7 mmol/L (3.5-5.1); Sodium 131 mmol/L (136-145)
[2017-12-21] MEDS: Potassium Chloride 20 MEQ TAB PO SCH (08:20)
[2017-12-21] MEDS: Bupropion 150 MG XL TAB PO SCH (08:21)
[2017-12-21] MEDS: Montelukast Sodium 10 mg Tablet PO SCH (08:21)
[2017-12-21] MEDS: Azelastine 137 MCG/Spray 30 ML NS SCH (08:21)
[2017-12-21] MEDS: Fluticasone Propionate Nasal Spray 16 gm Bottle NASAL SCH (08:21)
[2017-12-21] MEDS: ALPRAZolam 0.25 MG TAB PO PRN ×3 (08:24→20:51)
--- NOTE | 2017-12-21 10:32 | CON ---
DATE OF CONSULTATION: 12/21/2017 HISTORY OF PRESENT ILLNESS: Ms. Cisse reports that she had a setback yesterday and that she starte d experiencing some fleeting pains in her legs followed by development of some increased weakness in both legs. She had been able to stand with a walker and was up to take a shower yesterday. She repo rts that she is weak to the point that she was no longer able to do this. She was given a dose of So eleno-Medrol last night of 250 mg. She reports her strength feels better today. Her vital signs have b een stable, but there was reportedly some transient hypertension last night. Overall, today she is f eeling better and suggested that we continue the Solu-Medrol at 250 mg a day for the next 3 days and start Neurontin 300 mg twice a day for the nerve pain. She can be screened for rehabilitation. I zhang ve explained to her that is probably going to be a matter of time given that we have exhausted availa ble treatment.
--- NOTE | 2017-12-21 16:23 | PRG ---
DATE OF SERVICE: 12/21/2017 SUBJECTIVE: Tanna says last night her lower extremities became weaker and she has not been able to walk to the bathroom. She denies shortness of breath. She is talking in complete sentences. OBJECTIVE: VITAL SIGNS: She is afebrile, heart rate is 66, respiratory rate is 20, oximetry is 98 on room air, blood pressure 153/96. LUNGS: Clear. HEART: Regular rhythm. ABDOMEN: Soft. LABORATORY DATA: White count 2.7, hemoglobin 13.6, platelets 167,000. Sodium 131, potassium 3.7, chloride 106, bicarbonate 18, BUN 10, creatinine 0.85. 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 PLAN: Per Neurology. Does not have any respiratory compromise or secretion issues at this time.
[2017-12-21] MEDS ORDERED: cloNIDine 0.1 MG TAB PO PRN (16:32)
--- NOTE | 2017-12-21 16:36 | PDOC.PN ---
- Subjective Encounter Start Date: 12/21/17 Encounter Start Time: 16:00 Patient seen and examined for Ascending paralysis/ GB syndrome. LE weakness worsening. Unable to ambulate. No overnight events - Objective Resuscitation Status: Resuscitation Status FULL:Full Resuscitation MAR Reviewed: Yes Vital Signs & Weight: Vital Signs (12 hours) Temp Pulse Resp BP Pulse Ox 12/21/17 16:00 97.6 F 74 18 175/100 H 97 12/21/17 11:54 97.8 F 66 20 153/96 H 98 12/21/17 08:00 97.5 F L 64 20 148/96 H 96 Weight Weight 186 lb 7 oz I&O: 12/20/17 12/21/17 12/22/17 06:59 06:59 06:59 Intake Total 2084 Balance 2084 Result Diagrams: 12/21/17 04:28 12/21/17 04:28 EKG Reviewed by me: Yes (Tele SR) Phys Exam - Physical Examination Constitutional: NAD Respiratory: no wheezing, no rhonchi Cardiovascular: RRR, no rub Gastrointestinal: soft, non-tender, positive bowel sounds Musculoskeletal: no edema Neurological: moves all 4 limbs 3/5 strength in B/L LE, 5/5 in B/L UE Psychiatric: A&O x 3 Dx/Plan - Plan DVT proph w/lovenox, DVT proph w/SCDs IMPRESSION: 1. 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 Recent diarrhea - resolved 3. Mild intermittent Asthma 4. HTN - uncontrolled - prob due to anxiety 5. Anxiety/Depression 6. Hypokalemia/ Obesity BMI 30.1 PLAN: Cont Solumedrol per Neuro Add low dose Amlodipine Cont PT Rehab screening Resume Lovenox Add Pepcid Cont to monitor Cont other meds as below AM labs Review of Systems - Review of Systems Respiratory: negative: Cough, Dry, Shortness of Breath, Hemoptysis, SOB with Excertion, Pleuritic Pain, Sputum, Wheezing Cardiovascular: negative: chest pain, palpitations, orthopnea, paroxysmal nocturnal dyspnea, edema, light headedness, other - Medications/Allergies Allergies/Adverse Reactions: Allergies Allergy/AdvReac Type Severity Reaction Status Date / Time Penicillins Allergy Verified 12/17/17 21:31 Medications: Current Medications Acetaminophen (Tylenol) 650 mg PO Q4H PRN PRN Reason: Headache/Fever or Pain Last Admin: 12/19/17 15:34 Dose: 650 mg Alprazolam (Xanax) 0.25 mg PO TIDPRN PRN PRN Reason: Anxiety Last Admin: 12/21/17 08:24 Dose: 0.25 mg Amlodipine Besylate (Norvasc) 2.5 mg PO NOW [facility] Stop: 12/21/17 18:45 Amlodipine Besylate (Norvasc) 2.5 mg PO DAILY [facility] Azelastine HCl (Azelastine) 0 ml NS DAILY [facility] Last Admin: 12/21/17 08:21 Dose: 1 spr Bupropion HCl (Wellbutrin Xl) 150 mg PO DAILY [facility] Last Admin: 12/21/17 08:21 Dose: 150 mg Clonidine (Catapres) 0.1 mg PO Q4H PRN PRN Reason: Systolic BP > 180 Enoxaparin Sodium (Lovenox) 40 mg SC 0900 [facility] Famotidine (Pepcid) 20 mg PO BID [facility] Fluticasone Propionate (Flonase Nasal [place]) 0 gm NASAL DAILY [facility] Last Admin: 12/21/17 08:21 Dose: 1 spr Gabapentin (Neurontin) 300 mg PO BID [facility] Methylprednisolone Sodium Succinate 250 mg/ Sodium Chloride 104 mls @ 208 mls/ hr IVPB 1900 [facility] Stop: 12/23/17 19:29 Ketorolac Tromethamine (Toradol) 30 mg IVP Q6H PRN PRN Reason: Pain Stop: 12/24/17 07:16 Last Admin: 12/20/17 21:24 Dose: 30 mg Metoclopramide HCl (Reglan) 10 mg IVP Q6H PRN PRN Reason: Nausea Last Admin: 12/19/17 08:31 Dose: 10 mg Montelukast Sodium (Singulair) 10 mg PO DAILY [facility] Last Admin: 12/21/17 08:21 Dose: 10 mg Ondansetron HCl (Zofran) 4 mg IVP Q6H PRN PRN Reason: Nausea/Vomiting Last Admin: 12/20/17 18:18 Dose: 4 mg Sodium Chloride (Flush - Normal Saline) 10 ml IVF PRN PRN PRN Reason: Saline Flush Last Admin: 12/17/17 21:21 Dose: 10 ml
[2017-12-21] MEDS ORDERED: Amlodipine 5 MG TAB PO SCH (16:45)
[2017-12-21] MEDS: Famotidine 20 MG TAB PO SCH (20:51)
[2017-12-21] MEDS: Gabapentin 300 MG CAP PO SCH (20:51)
[2017-12-22 04:29] LABS: #Lymphocytes 0.8 thou/uL (1.20-3.40); #Monocytes 0.1 thou/uL (0.11-0.59); %Eosinophils 0.4 % (0.0-10.0); %Lymphocytes 19.7 % (21.0-51.0); %Neutrophils 77.9 % (42.0-75.0); Hemoglobin 13.4 g/dL (12.0-16.0); Mean Corpuscular HGB CONC 33.9 g/dL (32.0-36.0); Mean Corpuscular Hemoglobin 30.4 pg (27.0-31.0); Mean Corpuscular Volume 89.5 fL (78.0-98.0); Mean Platelet Volume 8.7 fL (7.4-10.4); Platelet Count 178 thou/uL (130-400); RBC Distribution Width 11.5 % (11.5-14.5); Red Blood Cell (RBC) Count 4.41 mill/uL (4.20-5.40); White Blood Cell (WBC) Count 3.9 thou/uL (4.8-10.8)
[2017-12-22 04:42] LABS: Anion Gap 10 mmol/L (10-20); BUN (Urea Nitrogen) 15 mg/dL (9.8-20.1); Calc. Creatinine Clearance 98 mL/min (70-130); Carbon Dioxide 22 mmol/L (22-29); Chloride 104 mmol/L (98-107); Estimated GFR-MDRD 67; Glucose 160 mg/dL (70-105); Magnesium 2.1 mg/dL (1.6-2.6); Phosphorus 3.7 mg/dL (2.3-4.7); Potassium 3.8 mmol/L (3.5-5.1); Sodium 132 mmol/L (136-145)
[2017-12-22] MEDS: Azelastine 137 MCG/Spray 30 ML NS SCH (08:35)
[2017-12-22] MEDS: Fluticasone Propionate Nasal Spray 16 gm Bottle NASAL SCH (08:35)
[2017-12-22] MEDS: Amlodipine 5 MG TAB PO SCH (08:37)
[2017-12-22] MEDS: Bupropion 150 MG XL TAB PO SCH (08:39)
[2017-12-22] MEDS: Famotidine 20 MG TAB PO SCH ×2 (08:39→20:53)
[2017-12-22] MEDS: Enoxaparin Sodium 40 MG/0.4 ML SYRINGE SC SCH (08:39)
[2017-12-22] MEDS: Folic Acid 1 MG TAB PO SCH (08:39)
[2017-12-22] MEDS: Cyanocobalamin (Vitamin B-12) 1,000 MCG TAB PO SCH (08:39)
[2017-12-22] MEDS: Montelukast Sodium 10 mg Tablet PO SCH (08:40)
[2017-12-22] MEDS: Multivit, Therapeutic 1 TAB PO SCH (08:40)
[2017-12-22] MEDS: Gabapentin 300 MG CAP PO SCH ×2 (08:40→20:53)
--- NOTE | 2017-12-22 09:41 | PRG ---
DATE OF SERVICE: 12/22/2017 She is awake, alert, responsive, in no respiratory distress. PHYSICAL EXAMINATION: VITAL SIGNS: Sats are 96 on room air, respiration rate 18, temperature 98, blood pressure 130/80. She is having pain and numbness in the leg and obviously some weakness. CHEST: No wheezing or crackles. CARDIAC: Normal S1, S2. No gallops. ABDOMEN: Soft, no masses. LABORATORY DATA: White count is unremarkable. Platelet count is normal. Electrolytes are unremarkable. IMPRESSION: 1. Status post viral syndrome with ensuing lower extremity weakness ascending paralysis. 2. No respiratory distress. PLAN: She has had 5 days of IV IVG. Neurology apparently has started her on high dose steroids. Continue supportive care. I will follow. MTDD
[2017-12-22 12:07] LABS: Bilirubin Negative (Negative); Blood, Urine Negative (Negative); Clarity CLEAR (Clear); Glucose, Urine (Dipstick) Negative (Negative); Leukocyte Small (Negative); Nitrite Negative (Negative); Protein, Urine (Dipstick) Negative (Neg-Trace); Specific Gravity, Urine 1.017 (1.002-1.036)
[2017-12-22 12:09] LABS: Bacteria/HPF Rare-Few HPF (None Seen); Hyaline Casts/LPF 0-3 HYALINE CAST LPF (0-3 Hyaline); Pathc Cast-AUWi Flag 0.58 (0-2.49)
--- NOTE | 2017-12-22 15:18 | PDOC.PN ---
- Subjective Encounter Start Date: 12/22/17 Encounter Start Time: 08:30 Patient seen and examined for GB syndrome. No significant improvement from yesterday. Some dysuria. No other complaints. No overnight events - Objective Resuscitation Status: Resuscitation Status FULL:Full Resuscitation MAR Reviewed: Yes Vital Signs & Weight: Vital Signs (12 hours) Temp Pulse Resp BP BP BP BP 12/22/17 12:00 98.1 F 93 20 130/92 H 12/22/17 10:02 164/98 H 142/84 H 12/22/17 08:37 93 12/22/17 07:53 98.0 F 93 18 138/80 12/22/17 07:40 12/22/17 04:00 97.7 F 93 18 136/86 Pulse Ox 12/22/17 12:00 97 12/22/17 10:02 12/22/17 08:37 12/22/17 07:53 96 12/22/17 07:40 99 12/22/17 04:00 96 Weight Weight 186 lb 7 oz I&O: 12/21/17 12/22/17 12/23/17 06:59 06:59 06:59 Intake Total 2085 1100 600 Balance 2085 1100 600 Result Diagrams: 12/22/17 03:58 12/22/17 03:58 EKG Reviewed by me: Yes (Tele SR) Phys Exam - Physical Examination Constitutional: NAD Respiratory: no wheezing, no rhonchi Cardiovascular: RRR, no rub Gastrointestinal: soft, non-tender, positive bowel sounds Musculoskeletal: no edema Neurological: moves all 4 limbs B/L LE 3/5 strength - no new focal findings Psychiatric: A&O x 3 Dx/Plan - Plan DVT proph w/SCDs IMPRESSION: 1. 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 Recent diarrhea - resolved 3. Mild intermittent Asthma 4. HTN - uncontrolled - prob due to anxiety 5. Anxiety/Depression 6. Hypokalemia/ Obesity BMI 30.1 PLAN: UA Urine culture if UA is abnormal Cont Solumedrol per Neuro Add low dose Amlodipine Cont therapy Rehab eval Cont Lovenox Cont Amlodipine Cont to monitor Cont current meds as below Review of Systems - Review of Systems Respiratory: negative: Cough, Dry, Shortness of Breath, Hemoptysis, SOB with Excertion, Pleuritic Pain, Sputum, Wheezing Cardiovascular: negative: chest pain, palpitations, orthopnea, paroxysmal nocturnal dyspnea, edema, light headedness, other - Medications/Allergies Allergies/Adverse Reactions: Allergies Allergy/AdvReac Type Severity Reaction Status Date / Time Penicillins Allergy Verified 12/17/17 21:31 Medications: Current Medications Acetaminophen (Tylenol) 650 mg PO Q4H PRN PRN Reason: Headache/Fever or Pain Last Admin: 12/19/17 15:34 Dose: 650 mg Alprazolam (Xanax) 0.25 mg PO TIDPRN PRN PRN Reason: Anxiety Last Admin: 12/21/17 20:51 Dose: 0.25 mg Amlodipine Besylate (Norvasc) 2.5 mg PO DAILY [facility] Last Admin: 12/22/17 08:37 Dose: 2.5 mg Azelastine HCl (Azelastine) 0 ml NS DAILY [facility] Last Admin: 12/22/17 08:35 Dose: 1 spr Bupropion HCl (Wellbutrin Xl) 150 mg PO DAILY [facility] Last Admin: 12/22/17 08:39 Dose: 150 mg Clonidine (Catapres) 0.1 mg PO Q4H PRN PRN Reason: Systolic BP > 180 Cyanocobalamin (Vitamin B-12) 1,000 mcg PO DAILY [facility] Last Admin: 12/22/17 08:39 Dose: 1,000 mcg Enoxaparin Sodium (Lovenox) 40 mg SC 0900 [facility] Last Admin: 12/22/17 08:39 Dose: 40 mg Famotidine (Pepcid) 20 mg PO BID [facility] Last Admin: 12/22/17 08:39 Dose: 20 mg Fluticasone Propionate (Flonase Nasal [place]) 0 gm NASAL DAILY [facility] Last Admin: 12/22/17 08:35 Dose: 1 spr Folic Acid (Folvite) 1 mg PO DAILY [facility] Last Admin: 12/22/17 08:39 Dose: 1 mg Gabapentin (Neurontin) 300 mg PO BID [facility] Last Admin: 12/22/17 08:40 Dose: 300 mg Methylprednisolone Sodium Succinate 250 mg/ Sodium Chloride 104 mls @ 208 mls/ hr IVPB 1900 [facility] Stop: 12/23/17 19:29 Last Admin: 12/21/17 20:52 Dose: 104 mls Ketorolac Tromethamine (Toradol) 30 mg IVP Q6H PRN PRN Reason: Pain Stop: 12/24/17 07:16 Last Admin: 12/20/17 21:24 Dose: 30 mg Metoclopramide HCl (Reglan) 10 mg IVP Q6H PRN PRN Reason: Nausea Last Admin: 12/19/17 08:31 Dose: 10 mg Montelukast Sodium (Singulair) 10 mg PO DAILY [facility] Last Admin: 12/22/17 08:40 Dose: 10 mg Multivitamins (Theragran) 1 tab PO DAILY [facility] Last Admin: 12/22/17 08:40 Dose: 1 tab Ondansetron HCl (Zofran) 4 mg IVP Q6H PRN PRN Reason: Nausea/Vomiting Last Admin: 12/20/17 18:18 Dose: 4 mg Sodium Chloride (Flush - Normal Saline) 10 ml IVF PRN PRN PRN Reason: Saline Flush Last Admin: 12/21/17 20:52 Dose: 10 ml
[2017-12-22 15:20] LABS: West Nile Virus IgG Ab - CSF Negative (Negative); West Nile Virus IgM Ab - CSF Negative (Negative)
[2017-12-22] MEDS: ALPRAZolam 0.25 MG TAB PO PRN ×2 (15:44→20:53)
[2017-12-23] MEDS: Fluticasone Propionate Nasal Spray 16 gm Bottle NASAL SCH (09:12)
[2017-12-23] MEDS: Azelastine 137 MCG/Spray 30 ML NS SCH (09:12)
[2017-12-23] MEDS: Amlodipine 5 MG TAB PO SCH (09:14)
[2017-12-23] MEDS: Cyanocobalamin (Vitamin B-12) 1,000 MCG TAB PO SCH (09:15)
[2017-12-23] MEDS: Famotidine 20 MG TAB PO SCH ×2 (09:15→22:13)
[2017-12-23] MEDS: Bupropion 150 MG XL TAB PO SCH (09:15)
[2017-12-23] MEDS: Enoxaparin Sodium 40 MG/0.4 ML SYRINGE SC SCH (09:15)
[2017-12-23] MEDS: Gabapentin 300 MG CAP PO SCH ×2 (09:15→22:13)
[2017-12-23] MEDS: Folic Acid 1 MG TAB PO SCH (09:15)
[2017-12-23] MEDS: Multivit, Therapeutic 1 TAB PO SCH (09:16)
[2017-12-23] MEDS: ALPRAZolam 0.25 MG TAB PO PRN ×3 (09:16→22:13)
[2017-12-23] MEDS: Montelukast Sodium 10 mg Tablet PO SCH (09:16)
--- NOTE | 2017-12-23 10:44 | PRG ---
DATE OF SERVICE: 12/23/2017 SUBJECTIVE: Awake, alert and responsive. She denies difficulty breathing. OBJECTIVE: VITAL SIGNS: Sats are 98%_ on room air, temperature is 98, pulse 65, respiratory rate 20, blood pressure 156/90. CHEST: No wheezing, crackles. CARDIAC: Normal S1, S2, no gallops. ABDOMEN: Soft, no masses. IMPRESSION: 1. Status post gastroenteritis. 2. Status post ascending paralysis, probably Guillain-[place]. 3. No respiratory issues. PLAN: The patient appears to have improved somewhat. She is able to lift the legs off the bed. No pulmonary issues. Probably, needs outpatient aggressive physical therapy. Pulmonary will follow at a distance. Call if needed. JENNIFER
[2017-12-23] MEDS ORDERED: Polyethylene Glycol 3350 17 GM Packet PO PRN (13:56)
[2017-12-23] MEDS ORDERED: Senokot S 8.6-50 MG TAB PO SCH (14:00)
--- NOTE | 2017-12-23 17:40 | PDOC.PN ---
- Subjective Encounter Start Date: 12/23/17 Encounter Start Time: 14:00 Patient seen and examined for GB syndrome. No new complaints. No overnight events - Objective Resuscitation Status: Resuscitation Status FULL:Full Resuscitation MAR Reviewed: Yes Vital Signs & Weight: Vital Signs (12 hours) Temp Pulse Resp BP BP BP BP 12/23/17 15:33 98.1 F 60 18 135/88 12/23/17 13:43 138/80 142/76 H 12/23/17 11:41 98.4 F 60 18 130/80 12/23/17 09:14 64 156/90 H 12/23/17 07:47 12/23/17 07:46 98.3 F 64 20 156/90 H 12/23/17 06:27 136/64 Pulse Ox 12/23/17 15:33 97 12/23/17 13:43 12/23/17 11:41 98 12/23/17 09:14 12/23/17 07:47 97 12/23/17 07:46 97 12/23/17 06:27 Weight Weight 186 lb 7 oz I&O: 12/22/17 12/23/17 12/24/17 06:59 06:59 06:59 Intake Total 1100 1400 600 Balance 1100 1400 600 Result Diagrams: 12/22/17 03:58 12/22/17 03:58 EKG Reviewed by me: Yes (Tele SR) Phys Exam - Physical Examination Constitutional: NAD Respiratory: no wheezing, no rhonchi Cardiovascular: RRR, no rub Gastrointestinal: soft, non-tender, positive bowel sounds Musculoskeletal: no edema Neurological: moves all 4 limbs B/L LE 3-4/5 - improving, No other new focal findings. Psychiatric: normal affect, A&O x 3 Dx/Plan - Plan DVT proph w/SCDs IMPRESSION: 1. 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 Recent diarrhea - resolved 3. Mild intermittent Asthma 4. HTN 5. Anxiety/Depression 6. Hypokalemia - replaced/ Obesity BMI 30.1 PLAN: Cont Solumedrol per Neuro Cont Lovenox Cont Amlodipine Cont to monitor Cont current meds as below Await Rehab eval - Stable for dc to Rehab Microbiology 12/22/17 11:54 Urine clean catch Urine Culture - Preliminary NO GROWTH AT 24 HOURS Review of Systems - Review of Systems Respiratory: negative: Cough, Dry, Shortness of Breath, Hemoptysis, SOB with Excertion, Pleuritic Pain, Sputum, Wheezing Cardiovascular: negative: chest pain, palpitations, orthopnea, paroxysmal nocturnal dyspnea, edema, light headedness, other - Medications/Allergies Allergies/Adverse Reactions: Allergies Allergy/AdvReac Type Severity Reaction Status Date / Time Penicillins Allergy Verified 12/17/17 21:31 Medications: Current Medications Acetaminophen (Tylenol) 650 mg PO Q4H PRN PRN Reason: Headache/Fever or Pain Last Admin: 12/19/17 15:34 Dose: 650 mg Alprazolam (Xanax) 0.25 mg PO TIDPRN PRN PRN Reason: Anxiety Last Admin: 12/23/17 14:47 Dose: 0.25 mg Amlodipine Besylate (Norvasc) 2.5 mg PO DAILY [facility] Last Admin: 12/23/17 09:14 Dose: 2.5 mg Azelastine HCl (Azelastine) 0 ml NS DAILY [facility] Last Admin: 12/23/17 09:12 Dose: 1 spr Bupropion HCl (Wellbutrin Xl) 150 mg PO DAILY [facility] Last Admin: 12/23/17 09:15 Dose: 150 mg Clonidine (Catapres) 0.1 mg PO Q4H PRN PRN Reason: Systolic BP > 180 Cyanocobalamin (Vitamin B-12) 1,000 mcg PO DAILY [facility] Last Admin: 12/23/17 09:15 Dose: 1,000 mcg Enoxaparin Sodium (Lovenox) 40 mg SC 0900 [facility] Last Admin: 12/23/17 09:15 Dose: 40 mg Famotidine (Pepcid) 20 mg PO BID [facility] Last Admin: 12/23/17 09:15 Dose: 20 mg Fluticasone Propionate (Flonase Nasal [place]) 0 gm NASAL DAILY [facility] Last Admin: 12/23/17 09:12 Dose: 1 spr Folic Acid (Folvite) 1 mg PO DAILY [facility] Last Admin: 12/23/17 09:15 Dose: 1 mg Gabapentin (Neurontin) 300 mg PO BID [facility] Last Admin: 12/23/17 09:15 Dose: 300 mg Methylprednisolone Sodium Succinate 250 mg/ Sodium Chloride 104 mls @ 208 mls/ hr IVPB 1900 [facility] Stop: 12/23/17 19:29 Last Admin: 12/22/17 17:37 Dose: 104 mls Ketorolac Tromethamine (Toradol) 30 mg IVP Q6H PRN PRN Reason: Pain Stop: 12/24/17 07:16 Last Admin: 12/20/17 21:24 Dose: 30 mg Metoclopramide HCl (Reglan) 10 mg IVP Q6H PRN PRN Reason: Nausea Last Admin: 12/19/17 08:31 Dose: 10 mg Montelukast Sodium (Singulair) 10 mg PO DAILY [facility] Last Admin: 12/23/17 09:16 Dose: 10 mg Multivitamins (Theragran) 1 tab PO DAILY [facility] Last Admin: 12/23/17 09:16 Dose: 1 tab Ondansetron HCl (Zofran) 4 mg IVP Q6H PRN PRN Reason: Nausea/Vomiting Last Admin: 12/20/17 18:18 Dose: 4 mg Polyethylene Glycol (Miralax) 17 gm PO DAILY [facility] Polyethylene Glycol (Miralax) 17 gm PO DAILY PRN PRN Reason: Constipation Senna/Docusate Sodium (Senokot S) 2 tab PO BID [facility] Senna/Docusate Sodium (Senokot S) 2 tab PO ONE [facility] Stop: 12/23/17 18:00 Last Admin: 12/23/17 14:47 Dose: 2 tab Sodium Chloride (Flush - Normal Saline) 10 ml IVF PRN PRN PRN Reason: Saline Flush Last Admin: 12/22/17 20:53 Dose: 10 ml
[2017-12-23] MEDS: Senokot S 8.6-50 MG TAB PO SCH (22:12)
[2017-12-24] MEDS: Polyethylene Glycol 3350 17 GM Packet PO SCH (08:52)
[2017-12-24] MEDS: Amlodipine 5 MG TAB PO SCH (08:52)
[2017-12-24] MEDS: Azelastine 137 MCG/Spray 30 ML NS SCH (08:53)
[2017-12-24] MEDS: Enoxaparin Sodium 40 MG/0.4 ML SYRINGE SC SCH (08:54)
[2017-12-24] MEDS: Famotidine 20 MG TAB PO SCH ×2 (08:54→22:00)
[2017-12-24] MEDS: Bupropion 150 MG XL TAB PO SCH (08:54)
[2017-12-24] MEDS: Cyanocobalamin (Vitamin B-12) 1,000 MCG TAB PO SCH (08:54)
[2017-12-24] MEDS: Senokot S 8.6-50 MG TAB PO SCH ×2 (08:55→22:10)
[2017-12-24] MEDS: Multivit, Therapeutic 1 TAB PO SCH (08:55)
[2017-12-24] MEDS: Montelukast Sodium 10 mg Tablet PO SCH (08:55)
[2017-12-24] MEDS: Gabapentin 300 MG CAP PO SCH ×2 (08:55→21:59)
[2017-12-24] MEDS: Fluticasone Propionate Nasal Spray 16 gm Bottle NASAL SCH (08:55)
[2017-12-24] MEDS: Folic Acid 1 MG TAB PO SCH (08:55)
[2017-12-24] MEDS: ALPRAZolam 0.25 MG TAB PO PRN ×2 (08:59→22:02)
--- NOTE | 2017-12-24 20:56 | PDOC.PN ---
- Subjective Encounter Start Date: 12/24/17 Encounter Start Time: 09:00 Patient seen and examined for Ascending paralysis. Feels better. LE weakness improving. No new complaints. No overnight events - Objective Resuscitation Status: Resuscitation Status FULL:Full Resuscitation MAR Reviewed: Yes Vital Signs & Weight: Vital Signs (12 hours) Temp Pulse Resp BP BP Pulse Ox 12/24/17 19:53 97.9 F 77 16 97 12/24/17 16:00 98.5 F 73 18 136/84 98 12/24/17 15:49 136/84 12/24/17 14:45 148/92 H 12/24/17 11:57 98.5 F 73 16 138/76 97 Weight Weight 186 lb 7 oz I&O: 12/23/17 12/24/17 12/25/17 06:59 06:59 06:59 Intake Total 1400 1900 Output Total 0 Balance 1400 1900 Result Diagrams: 12/22/17 03:58 12/22/17 03:58 EKG Reviewed by me: Yes (Tele SR) Phys Exam - Physical Examination Constitutional: NAD Respiratory: no wheezing, no rhonchi Cardiovascular: RRR, no rub Gastrointestinal: soft, non-tender, positive bowel sounds Musculoskeletal: no edema Neurological: moves all 4 limbs B/L LE 3-4/5 - improved from yest. Psychiatric: A&O x 3 Dx/Plan - Plan DVT proph w/SCDs IMPRESSION: 1. 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 Recent diarrhea - resolved 3. Mild intermittent Asthma 4. HTN 5. Anxiety/Depression 6. Hypokalemia - replaced/ Obesity BMI 30.1 PLAN: Cont current meds as below Await Rehab eval/insurance ruth - Stable for dc to Rehab Review of Systems - Review of Systems Respiratory: negative: Cough, Dry, Shortness of Breath, Hemoptysis, SOB with Excertion, Pleuritic Pain, Sputum, Wheezing Cardiovascular: negative: chest pain, palpitations, orthopnea, paroxysmal nocturnal dyspnea, edema, light headedness, other - Medications/Allergies Allergies/Adverse Reactions: Allergies Allergy/AdvReac Type Severity Reaction Status Date / Time Penicillins Allergy Verified 12/17/17 21:31 Medications: Current Medications Acetaminophen (Tylenol) 650 mg PO Q4H PRN PRN Reason: Headache/Fever or Pain Last Admin: 12/19/17 15:34 Dose: 650 mg Alprazolam (Xanax) 0.25 mg PO TIDPRN PRN PRN Reason: Anxiety Last Admin: 12/24/17 08:59 Dose: 0.25 mg Amlodipine Besylate (Norvasc) 2.5 mg PO DAILY [facility] Last Admin: 12/24/17 08:52 Dose: 2.5 mg Azelastine HCl (Azelastine) 0 ml NS DAILY [facility] Last Admin: 12/24/17 08:53 Dose: 1 spr Bupropion HCl (Wellbutrin Xl) 150 mg PO DAILY [facility] Last Admin: 12/24/17 08:54 Dose: 150 mg Clonidine (Catapres) 0.1 mg PO Q4H PRN PRN Reason: Systolic BP > 180 Cyanocobalamin (Vitamin B-12) 1,000 mcg PO DAILY [facility] Last Admin: 12/24/17 08:54 Dose: 1,000 mcg Enoxaparin Sodium (Lovenox) 40 mg SC 0900 [facility] Last Admin: 12/24/17 08:54 Dose: 40 mg Famotidine (Pepcid) 20 mg PO BID [facility] Last Admin: 12/24/17 08:54 Dose: 20 mg Fluticasone Propionate (Flonase Nasal [place]) 0 gm NASAL DAILY [facility] Last Admin: 12/24/17 08:55 Dose: 2 spr Folic Acid (Folvite) 1 mg PO DAILY [facility] Last Admin: 12/24/17 08:55 Dose: 1 mg Gabapentin (Neurontin) 300 mg PO BID [facility] Last Admin: 12/24/17 08:55 Dose: 300 mg Metoclopramide HCl (Reglan) 10 mg IVP Q6H PRN PRN Reason: Nausea Last Admin: 12/19/17 08:31 Dose: 10 mg Montelukast Sodium (Singulair) 10 mg PO DAILY [facility] Last Admin: 12/24/17 08:55 Dose: 10 mg Multivitamins (Theragran) 1 tab PO DAILY [facility] Last Admin: 12/24/17 08:55 Dose: 1 tab Ondansetron HCl (Zofran) 4 mg IVP Q6H PRN PRN Reason: Nausea/Vomiting Last Admin: 12/20/17 18:18 Dose: 4 mg Polyethylene Glycol (Miralax) 17 gm PO DAILY [facility] Last Admin: 12/24/17 08:52 Dose: 17 gm Polyethylene Glycol (Miralax) 17 gm PO DAILY PRN PRN Reason: Constipation Senna/Docusate Sodium (Senokot S) 2 tab PO BID [facility] Last Admin: 12/24/17 08:55 Dose: 2 tab Sodium Chloride (Flush - Normal Saline) 10 ml IVF PRN PRN PRN Reason: Saline Flush Last Admin: 12/22/17 20:53 Dose: 10 ml
[2017-12-24] MEDS: Acetaminophen 325 MG TAB PO PRN (22:02)
[2017-12-25] MEDS: Enoxaparin Sodium 40 MG/0.4 ML SYRINGE SC SCH (09:21)
[2017-12-25] MEDS: Polyethylene Glycol 3350 17 GM Packet PO SCH (09:22)
[2017-12-25] MEDS: Folic Acid 1 MG TAB PO SCH (09:22)
[2017-12-25] MEDS: Amlodipine 5 MG TAB PO SCH (09:22)
[2017-12-25] MEDS: Gabapentin 300 MG CAP PO SCH ×2 (09:22→20:21)
[2017-12-25] MEDS: Montelukast Sodium 10 mg Tablet PO SCH (09:24)
[2017-12-25] MEDS: ALPRAZolam 0.25 MG TAB PO PRN ×2 (09:24→15:28)
[2017-12-25] MEDS: Azelastine 137 MCG/Spray 30 ML NS SCH (09:24)
[2017-12-25] MEDS: Bupropion 150 MG XL TAB PO SCH (09:24)
[2017-12-25] MEDS: Cyanocobalamin (Vitamin B-12) 1,000 MCG TAB PO SCH (09:25)
[2017-12-25] MEDS: Multivit, Therapeutic 1 TAB PO SCH (09:25)
[2017-12-25] MEDS: Senokot S 8.6-50 MG TAB PO SCH ×2 (09:25→20:21)
[2017-12-25] MEDS: Famotidine 20 MG TAB PO SCH ×2 (09:25→20:21)
[2017-12-25] MEDS: Fluticasone Propionate Nasal Spray 16 gm Bottle NASAL SCH (09:25)
--- NOTE | 2017-12-25 10:49 | PRG ---
DATE OF SERVICE: 12/25/2017 This morning she is awake, alert and responsive, no respiratory distress. PHYSICAL EXAMINATION: VITAL SIGNS: Sats are 90% on room air, respiration 16, temperature 97, blood pressure 140/95. GENERAL: She is having difficulty getting her legs out of bed. CHEST: No wheezing, no crackles. CARDIAC: Normal S1-S2. No gallops. ABDOMEN: Soft. No masses. IMPRESSION: 1. Ascending paralysis. 2. Guillain-[place]. 3. Leg weakness. PLAN: She needs aggressive PT and rehab. Continue deep venous thrombosis prophylaxis. Supportive c are.
[2017-12-25] MEDS: Acetaminophen 325 MG TAB PO PRN (15:28)
[2017-12-25 20:06] VITALS: BP 124/92; TEMP 98.3
== END 2017-12-25 21:25 | DRG 95 ==
LOC: SCSER 14:46 → IMCU/EMU 16:17 → 2SE 12-19 19:30
PROVIDERS: ADMIT Internal Medicine; ATTEND Internal Medicine
PROC: 30233S1 Transfusion of Nonautologous Globulin into Peripheral Vein, Percutaneous Approach (ICD-10-PCS; principal; 2017-12-17)
PROC: 009U3ZX Drainage of Spinal Canal, Percutaneous Approach, Diagnostic (ICD-10-PCS; 2017-12-18)
PROC: B01BYZZ Fluoroscopy of Spinal Cord using Other Contrast (ICD-10-PCS; 2017-12-18)
DX: G61.0 Guillain-Barre syndrome (principal); E87.1 Hypo-osmolality and hyponatremia; J45.20 Mild intermittent asthma, uncomplicated; E66.9 Obesity, unspecified; Z68.30 Body mass index [BMI] 30.0-30.9, adult; E87.6 Hypokalemia; F32.9 Major depressive disorder, single episode, unspecified; F41.9 Anxiety disorder, unspecified; Z88.0 Allergy status to penicillin; Z79.899 Other long term (current) drug therapy; K52.9 Noninfective gastroenteritis and colitis, unspecified
CPT/HCPCS: 36415; 36416; 62270; 70450; 70551; 71045; 80048; 80053; 80061; 81001; 81003; 82553; 82945; 83735; 84100; 84157; 84484; 85025; 86788; 86789; 87086; 89051; 90471; 90732; 93005; A4216; G0009; G8978-GP-CL; G8979-GP-CJ; G8987-GO-CL; G8988-GO-CJ; J1568; J1650; J1885; J2405; J2765; J2930; J7050

== ENCOUNTER 2018-01-04 08:30 | Inpatient (IN) | payer OTHER ==
[2018-01-04] MEDS ORDERED: Fentanyl 100 MCG/2 ML VIAL ONE ×2 (08:56→13:26)
[2018-01-04] MEDS ORDERED: methylPREDNISolone Sod Succ/PF 125 MG/2 ML VIAL ONE (09:36)
--- NOTE | 2018-01-04 09:36 | RAD ---
SEMIUPRIGHT PORTABLE CHEST: Date; 01/04/18 HISTORY: 52-year-old female with history of dyspnea. COMPARISON: 12/18/17. FINDINGS: Monitor leads overlie the chest. S-shaped scoliotic changes. Left subclavian catheter. Heart size is within normal limits. Lungs are clear. IMPRESSION: No acute intrathoracic disease. Left subclavian catheter. POS: JESSICA
[2018-01-04 09:47] LABS: Actual Bicarbonate (HCO3a) 25.8 mEq/L (22-28); Analyzer IN Cardio ER; Base Excess (BEa) 3.7 mEq/L (-2.0 to +3.0); CO2 Tension 31.7 mmHg (35.0-45.0); Calcium, Ionized 1.17 mmol/L (1.12-1.30); Carboxyhemoglobin (COHb) 0.3 gm% (0.0-3.0); O2 Tension (PaO2) 213.4 mmHg (80.0-100.0); Potassium - ABG Lab 3.23 mmol/L (3.70-5.30); pH, Arterial 7.53 (7.35-7.45)
[2018-01-04 09:52] LABS: Puncture Site RBA
[2018-01-04 09:53] LABS: ALV-art Gradient 32.175 (0-20)
[2018-01-04 10:26] LABS: #Eosinphils 0.1 thou/uL (0.0-0.7); #Lymphocytes 3.4 thou/uL (1.20-3.40); #Monocytes 0.6 thou/uL (0.11-0.59); #Neutrophils 3.6 thou/uL (1.40-6.50); %Basophils 0.5 % (0.0-1.0); %Eosinophils 0.8 % (0.0-10.0); %Lymphocytes 44.3 % (21.0-51.0); %Monocytes 8.2 % (0.0-10.0); %Neutrophils 46.3 % (42.0-75.0); Hemoglobin 12.7 g/dL (12.0-16.0); Mean Corpuscular HGB CONC 33.4 g/dL (32.0-36.0); Mean Corpuscular Hemoglobin 30.8 pg (27.0-31.0); Mean Corpuscular Volume 92.2 fL (78.0-98.0); Mean Platelet Volume 8.8 fL (7.4-10.4); Platelet Count 167 thou/uL (130-400); RBC Distribution Width 11.8 % (11.5-14.5); Red Blood Cell (RBC) Count 4.11 mill/uL (4.20-5.40); White Blood Cell (WBC) Count 7.7 thou/uL (4.8-10.8)
[2018-01-04 10:47] LABS: ALT (SGPT) 616 U/L (8-55); AST (SGOT) 176 U/L (5-34); Albumin 3.5 g/dL (3.5-5.0); Alkaline Phosphatase 110 U/L (40-150); Anion Gap 12 mmol/L (10-20); BUN (Urea Nitrogen) 12 mg/dL (9.8-20.1); Bilirubin, Total 0.5 mg/dL (0.2-1.2); CK (CPK) 37 U/L (29-168); Calc. Creatinine Clearance 0 mL/min (70-130); Calcium 8.9 mg/dL (7.8-10.44); Carbon Dioxide 24 mmol/L (22-29); Chloride 104 mmol/L (98-107); Estimated GFR-MDRD 78; Globulin 3.6 g/dL (2.4-3.5); Glucose 88 mg/dL (70-105); Lipase 38 U/L (8-78); Potassium 3.2 mmol/L (3.5-5.1); Protein, Total 7.1 g/dL (6.0-8.3); Sodium 137 mmol/L (136-145)
[2018-01-04 10:51] LABS: CKMB 0.6 ng/mL (0-6.6); Troponin I Less than 0.010 ng/mL (< 0.028)
[2018-01-04 11:16] LABS: Phosphorus 3.2 mg/dL (2.3-4.7)
[2018-01-04 11:49] LABS: Bilirubin Negative (Negative); Blood, Urine Negative (Negative); Clarity CLEAR (Clear); Glucose, Urine (Dipstick) Negative (Negative); Leukocyte Negative (Negative); Nitrite Negative (Negative); Protein, Urine (Dipstick) Negative (Neg-Trace); Specific Gravity, Urine 1.006 (1.002-1.036); pH, Urine 7.5 (5.0-9.0)
[2018-01-04] MEDS ORDERED: Ondansetron ODT 4 MG TAB SL PRN (15:11)
[2018-01-04] MEDS ORDERED: Ondansetron HCl/PF 4 MG/2 ML Vial IVP PRN ×2 (15:11→18:49)
[2018-01-04] MEDS ORDERED: Sodium Chloride 0.9% 1,000 ML IV SCH (15:11)
[2018-01-04] MEDS ORDERED: Fentanyl 100 MCG/2 ML VIAL SLOW IVP PRN (15:12)
--- NOTE | 2018-01-04 16:26 | PRG ---
DATE OF SERVICE: 01/04/2018 Ms. Cisse was sent over from rehab due to complaints of difficulty breathing. She reports that she felt like the right side of her face has become acutely weaker. She was given a dose of steroids si nce being down here in the emergency room and oddly enough her symptoms have improved abruptly. Her saturations looked good on a BiPAP. She reports a neuropathic-type pain in her extremities. Her cli nical picture is a bit bizarre, suggests that we give her 2 more days of steroids, Solu-Medrol 500 mg per day, and start her on Neurontin 300 mg q.6 hours for the nerve pain.
[2018-01-04 17:14] VITALS: BMI 30.8
[2018-01-04] MEDS: Dextrose 5 %-0.45 % NaCl 1,000 ML IV SCH (17:58)
[2018-01-04] MEDS: Potassium Chloride 20 MEQ TAB PO SCH ×2 (17:59→21:32)
[2018-01-04] MEDS ORDERED: SODIUM CHLORIDE 0.9% IVPB SCH (18:00)
[2018-01-04] MEDS ORDERED: METHYLPREDNISOLONE SOD SUCC IVPB SCH (18:00)
[2018-01-04] MEDS ORDERED: Ondansetron ODT 4 MG TAB PO PRN (18:49)
--- NOTE | 2018-01-04 19:03 | HP ---
DATE OF ADMISSION: 01/04/2018 PRIMARY CARE PHYSICIAN: Marian Camarena M.D. PRIMARY NEUROLOGIST: Dr. Shin. CHIEF COMPLAINT: Right-sided weakness with respiratory distress. HISTORY OF PRESENT ILLNESS: The patient is a 52-year-old female who was discharged from this facilit y to inpatient rehabilitation with a diagnosis of Guillain-Harvey syndrome who presented to the emerge ncy room from rehab with above complaints. During the last hospitalization, the patient received 2 doses of IVIG followed by 3-4 days of IV Solu -Medrol 250 mg daily. She was discharged to inpatient rehabilitation. Over the last 4 days, symptoms started coming back. She noticed weakness over the right half of the face along with twitching. She also developed respiratory distress for which she was started on medhat nvasive positive pressure ventilation at the rehabilitation. She has been on BiPAP over the last 48 hours. She also had issues with orthostatic blood pressure for which she was started on midodrine. Right leg weakness has significantly improved. She also has some numbness and tingling in bilateral hands. In the emergency room, her initial vital signs showed temperature 98, respirations 22, pulse rate of 83 with a blood pressure of 160/89 with O2 saturation 97% on noninvasive positive pressure ventilatio n. EKG showed sinus rhythm. She was evaluated by Dr. hSin, Neurology who recommended starting he r on high dose of steroids. She has been on steroids at the rehabilitation orally due to poor IV acc ess. A central line was placed for this reason. PAST MEDICAL HISTORY: 1. Recent Guillain-Harvey syndrome. 2. History of diarrhea prior to the onset of Guillain-Harvey syndrome. 3. Mild intermittent asthma. 4. Anxiety, depression. 5. Hypertension. 6. Obesity with a BMI at 30.8. PAST SURGICAL HISTORY: 1. Right wrist surgery. 2. Cholecystectomy. 3. Tonsillectomy. 4. Left breast lumpectomy. ALLERGIES: PENICILLIN. CURRENT HOME MEDICATIONS: To be verified. We will try to get accurate list of medications from the inpatient rehabilitation. SOCIAL HISTORY: Patient currently lives at home. Denies current use of smoking, alcohol or drug use . FAMILY HISTORY: Negative for premature coronary artery disease. REVIEW OF SYSTEMS: The following complete review of systems was negative, unless otherwise mentioned in the HPI or below: Constitutional: Weight loss or gain, ability to conduct usual activities. Sk in: Rash, itching. Eyes: Double vision, pain. ENT/Mouth: Nose bleeding, neck stiffness, pain, te nderness. Cardiovascular: Palpitations, dyspnea on exertion, orthopnea. Respiratory: Shortness of breath, wheezing, cough, hemoptysis, fever or night sweats. Gastrointestinal: Poor appetite, abdom inal pain, heartburn, nausea, vomiting, constipation, or diarrhea. Genitourinary: Urgency, frequenc y, dysuria, nocturia. Musculoskeletal: Pain, swelling. Neurologic/Psychiatric: Anxiety, depressio n. Allergy/Immunologic: Skin rash, bleeding tendency. PHYSICAL EXAMINATION: VITAL SIGNS: As discussed above. GENERAL: A 52-year-old female, currently on noninvasive positive pressure ventilation. HEENT: Head atraumatic, normocephalic. Sclerae are anicteric. Pupils were equally reacting to ligh t. Extraocular muscles intact. NECK: Supple, no JVD, no carotid bruit. LUNGS: Clear to auscultation bilaterally with diminished air entry at bases. HEART: S1, S2 present. Regular rate and rhythm. No murmur, rubs, or gallops. ABDOMEN: Soft, nontender, bowel sounds present. EXTREMITIES: No edema or calf tenderness. NEUROLOGY: There is 3/5 strength in bilateral upper extremity and left lower extremity. Right lower extremity has 5/5 power. Tone was normal. Reflexes were hyper in bilateral knees. Gait was not as sessed. PSYCHIATRY: Alert, awake, oriented x3. SKIN: Warm and dry. LYMPH NODES: No palpable lymph nodes in the neck. PERIPHERAL VASCULAR: Radial pulses palpable bilaterally. MUSCULOSKELETAL: No joint swelling or tenderness. LABORATORY AND X-RAY FINDINGS: CBC showed WBC 7.7 with hemoglobin 12.7. ABG showed pH 7.53 with pCO 2 of 31.7, pO2 of 213, bicarbonate of 25.8. Chemistry showed sodium 137, potassium 3.2, chloride 104 , bicarbonate 24, BUN 12, creatinine 0.17. Magnesium, phosphorus in normal range. AST has improved to 176 from 470. ALT has improved to 616 from 1041, 3 days ago. Troponins negative. Chest x-ray by my review was negative for infiltrate or edema. EKG by my review as discussed above. IMPRESSION: 1. Generalized weakness, secondary to recent Guillain-Harvey syndrome with acute respiratory failure requiring noninvasive positive pressure ventilation. 2. Mild intermittent asthma. 3. Hypertension, improving. 4. Liver function tests. 5. Anxiety, depression. 6. Hypokalemia. 7. Obesity with a BMI 30.8. 8. History of hypertension with recent diagnosis of orthostatic hypotension, on midodrine. PLAN: The patient will be monitored in the Intermediate Care Unit. Patient has already been evaluat ed by Neurology. We will continue steroids per neurology recommendation. Nebulizer treatment as nee ded. Vital signs q.4 hourly. Plan of care was discussed with the patient in detail. She stated understanding.
--- NOTE | 2018-01-04 21:25 | CON ---
DATE OF SERVICE: 01/04/2018 SERVICE: Pulmonary Medicine. HISTORY OF PRESENT ILLNESS: The patient is a 52-year-old white female with past medical history significant for Guillain-Waverly syndrome which was recently diagnosed. She went back to her nursing home facility. They lost IV access. She started having an episode of GBS flare. Ultimately, they tried to give her some oral steroids, but they were ineffective. Because the patient did not have IV access, she was subsequently sent to the emergency department, so she did get steroids. That being said, they wanted to watch her very closely in the ICU over the next 24 hours to make certain that she did not have any recurrence in her ascending difficulty. The patient is talking in full sentences. She does not look to be in any distress. She reports no fevers or chills. There has been no nausea or vomiting, diarrhea or chest discomfort otherwise. She is having some tingling and numbness in the left arm, in the left leg. It comes and goes. It typically goes away the steroids. PHYSICAL EXAMINATION: VITAL SIGNS: Afebrile, pulse 75, respirations 14, saturation 98% on 2 liters nasal cannula. GENERAL: Patient is awake, alert, no apparent distress. LUNGS: Excellent air entry. There is no prolonged expiratory phase, wheezing, rhonchi, or crackles present. HEART: Normal rate, regular. ABDOMEN: Soft, nontender, nondistended. Bowel sounds are positive. MUSCULOSKELETAL: No cyanosis or clubbing. There is no pitting in the bilateral lower extremities. NEUROLOGIC: Grossly nonfocal. If anything, she got a functional exam. LABORATORY DATA: WBC 7.7, hemoglobin 12.7, platelets 167,000. A pH 7.53, pCO2 of 32, pO2 of 213. Basic metabolic profile is essentially unremarkable except for potassium of 3.2. AST and ALT are elevated. Liver function studies are otherwise unremarkable. However, cardiac enzymes are negative. Magnesium and phosphorus fall within normal limits. Urinalysis is unremarkable. I reviewed the LP sample. She did not have an elevated protein. IMAGING DATA: Chest x-ray demonstrates no acute cardiopulmonary abnormality. There has been an interval placement of a left-sided subclavian central venous catheter which terminates in a good position. ASSESSMENT: 1. History of Guillain-Waverly syndrome with possible flare. 2. Respiratory alkalosis. 3. Elevated AST and ALT. 4. Hyperkalemia. DISCUSSION AND PLAN: I will add potassium. This will be 40 mEq p.o. x2. I will repeat liver function studies in the morning. If this is trending upward, an investigation may be warranted. We will watch her very closely and make certain she did not develop any respiratory failure, but at this point, we are going to discontinue the BiPAP. We can continue using it at night, but during the daytime, if she is breathing comfortably based on what she says, it is not necessary. We will work with physical therapy and try to mobilize her as much as tolerated. 70 minutes have been devoted to this patient in various activities. I personally reviewed all imaging studies and laboratory data noted within this document. For fifty percent of this time, I was interacting with the patient at the bedside or coordinating care with the care team. For the remainder of the time I was immediately available to the patient in the hospital unit. JENNIFER
[2018-01-04] MEDS: Senokot S 8.6-50 MG TAB PO SCH (21:29)
[2018-01-04] MEDS: Famotidine 20 MG TAB PO SCH (21:30)
[2018-01-04] MEDS: Gabapentin 300 MG CAP PO SCH (21:30)
[2018-01-04] MEDS: Azelastine 137 MCG/Spray 30 ML NS SCH (21:30)
[2018-01-04] MEDS: ALPRAZolam 0.25 MG TAB PO SCH (21:30)
[2018-01-04] MEDS: Midodrine HCl 5 MG TAB PO SCH (21:31)
[2018-01-04] MEDS: traZODone HCl 50 MG TAB PO SCH (21:33)
[2018-01-05] MEDS: methylPREDNISolone Sod Succ/PF 125 MG/2 ML VIAL IVP SCH ×5 (00:12→23:39)
[2018-01-05 03:56] LABS: #Lymphocytes 0.8 thou/uL (1.20-3.40); #Monocytes 0.1 thou/uL (0.11-0.59); #Neutrophils 6.4 thou/uL (1.40-6.50); %Eosinophils 0.3 % (0.0-10.0); %Lymphocytes 10.6 % (21.0-51.0); %Monocytes 0.9 % (0.0-10.0); %Neutrophils 88.2 % (42.0-75.0); Hemoglobin 13.3 g/dL (12.0-16.0); Mean Corpuscular HGB CONC 34.2 g/dL (32.0-36.0); Mean Corpuscular Volume 90.6 fL (78.0-98.0); Mean Platelet Volume 9.1 fL (7.4-10.4); Platelet Count 202 thou/uL (130-400); RBC Distribution Width 11.6 % (11.5-14.5); Red Blood Cell (RBC) Count 4.27 mill/uL (4.20-5.40); White Blood Cell (WBC) Count 7.3 thou/uL (4.8-10.8)
[2018-01-05 04:18] LABS: ALT (SGPT) 631 U/L (8-55); AST (SGOT) 164 U/L (5-34); Albumin 3.6 g/dL (3.5-5.0); Alkaline Phosphatase 110 U/L (40-150); Anion Gap 10 mmol/L (10-20); BUN (Urea Nitrogen) 17 mg/dL (9.8-20.1); Bilirubin, Total 0.5 mg/dL (0.2-1.2); Calc. Creatinine Clearance 101 mL/min (70-130); Calcium 9.2 mg/dL (7.8-10.44); Carbon Dioxide 26 mmol/L (22-29); Chloride 102 mmol/L (98-107); Estimated GFR-MDRD 68; Globulin 3.9 g/dL (2.4-3.5); Glucose 189 mg/dL (70-105); Potassium 4.3 mmol/L (3.5-5.1); Protein, Total 7.5 g/dL (6.0-8.3); Sodium 134 mmol/L (136-145)
[2018-01-05] MEDS: Acetaminophen 325 MG TAB PO PRN (05:26)
[2018-01-05] MEDS: Dextrose 5 %-0.45 % NaCl 1,000 ML IV SCH (09:20)
[2018-01-05] MEDS: Enoxaparin Sodium 40 MG/0.4 ML SYRINGE SC SCH (09:21)
[2018-01-05] MEDS: Famotidine 20 MG TAB PO SCH ×2 (09:21→20:53)
[2018-01-05] MEDS: Gabapentin 300 MG CAP PO SCH ×2 (09:21→23:39)
[2018-01-05] MEDS: Multivitamin W/ Minerals 1 TAB PO SCH (09:21)
[2018-01-05] MEDS: Montelukast Sodium 10 mg Tablet PO SCH (09:21)
[2018-01-05] MEDS: Bupropion 150 MG XL TAB PO SCH (09:22)
[2018-01-05] MEDS: ALPRAZolam 0.25 MG TAB PO SCH ×2 (09:22→20:53)
[2018-01-05] MEDS: Midodrine HCl 5 MG TAB PO SCH ×3 (09:22→20:53)
[2018-01-05] MEDS: Senokot S 8.6-50 MG TAB PO SCH ×2 (09:22→20:53)
[2018-01-05] MEDS: Azelastine 137 MCG/Spray 30 ML NS SCH ×2 (09:23→20:54)
[2018-01-05] MEDS: Polyethylene Glycol 3350 17 GM Packet PO SCH (09:24)
--- NOTE | 2018-01-05 10:28 | PRG ---
DATE OF SERVICE: 01/05/2018 Ms. Cisse was admitted yesterday with progressive symptoms of numbness and apparently respiratory f ailure. She was started high dose steroids to which she says she is feeling better. Additionally, s he tells me that while she was in the rehab she had symptoms of wheezing, was given some neb treatmen ts. PHYSICAL EXAMINATION: VITAL SIGNS: Her sats are 100% on 3 liters, temperature 98, pulse 72, blood pressure 154/93. GENERA L: This morning she is awake, alert, responsive. EXTREMITIES: Moves all 4 extremities. LABORATORY: Unremarkable. AST and ALT are elevated at 164 and 631. She had a chest x-ray taken last night which shows that there were no acute infiltrates. She has a c entral line placed in. IMPRESSION: 1. Respiratory failure. 2. Recent ascending paralysis. 3. Abnormal liver function profile. PLAN: As per her Neurology. I have added Dulera to her present treatment. Continue aggressive PT a nd supportive care. I will follow. Additionally, we have ordered a daily NIP and vital capacity.
--- NOTE | 2018-01-05 10:58 | PDOC.PN ---
- Subjective Encounter Start Date: 01/05/18 Encounter Start Time: 10:57 Subjective: sob much improved, strength improved - Objective Resuscitation Status: Resuscitation Status FULL:Full Resuscitation MAR Reviewed: Yes Vital Signs & Weight: Vital Signs (12 hours) Temp Pulse Resp BP Pulse Ox 01/05/18 07:59 100 01/05/18 07:14 98.4 F 72 18 154/93 H 100 01/05/18 04:13 98.0 F 72 12 125/78 100 01/05/18 00:22 98.3 F 75 18 136/75 99 Weight Weight 191 lb I&O: 01/04/18 01/05/18 01/06/18 06:59 06:59 06:59 Intake Total 1320 Output Total 3100 Balance -1780 Result Diagrams: 01/05/18 03:40 01/05/18 03:40 Phys Exam - Physical Examination Neck: no JVD Respiratory: clear to auscultation bilateral Cardiovascular: RRR, no significant murmur Gastrointestinal: soft, positive bowel sounds Musculoskeletal: no edema decreased sensatio in LE. strength decreased on L compared to R Dx/Plan (1) Acute respiratory failure with hypoxia Code(s): J96.01 - ACUTE RESPIRATORY FAILURE WITH HYPOXIA Status: Acute (2) Mild intermittent asthma, uncomplicated Code(s): J45.20 - MILD INTERMITTENT ASTHMA, UNCOMPLICATED Status: Acute (3) Guillain Marie syndrome Code(s): G61.0 - GUILLAIN-BARRE SYNDROME Status: Acute - Plan off BIPAP -: cont iv steroids -: DC huitron -: Adjust gabapentin * .
[2018-01-05] MEDS ORDERED: Gabapentin 300 MG CAP PO SCH ×2 (11:00→16:00)
[2018-01-05] MEDS: Mometasone/Formoterol 120 PUFF INHALER INH SCH (18:42)
[2018-01-05] MEDS: traZODone HCl 50 MG TAB PO SCH (20:53)
[2018-01-06 04:06] LABS: #Lymphocytes 0.8 thou/uL (1.20-3.40); #Monocytes 0.1 thou/uL (0.11-0.59); #Neutrophils 8.4 thou/uL (1.40-6.50); %Basophils 0.3 % (0.0-1.0); %Eosinophils 0.1 % (0.0-10.0); %Lymphocytes 8.9 % (21.0-51.0); %Monocytes 1.2 % (0.0-10.0); %Neutrophils 89.5 % (42.0-75.0); Hemoglobin 13.1 g/dL (12.0-16.0); Mean Corpuscular HGB CONC 32.6 g/dL (32.0-36.0); Mean Corpuscular Hemoglobin 29.6 pg (27.0-31.0); Mean Corpuscular Volume 90.6 fL (78.0-98.0); Platelet Count 225 thou/uL (130-400); RBC Distribution Width 11.6 % (11.5-14.5); Red Blood Cell (RBC) Count 4.42 mill/uL (4.20-5.40); White Blood Cell (WBC) Count 9.4 thou/uL (4.8-10.8)
[2018-01-06 04:19] LABS: ALT (SGPT) 491 U/L (8-55); AST (SGOT) 88 U/L (5-34); Albumin 3.6 g/dL (3.5-5.0); Alkaline Phosphatase 101 U/L (40-150); Anion Gap 11 mmol/L (10-20); BUN (Urea Nitrogen) 19 mg/dL (9.8-20.1); Bilirubin, Total 0.6 mg/dL (0.2-1.2); Calc. Creatinine Clearance 110 mL/min (70-130); Calcium 9.3 mg/dL (7.8-10.44); Carbon Dioxide 25 mmol/L (22-29); Chloride 101 mmol/L (98-107); Estimated GFR-MDRD 75; Globulin 3.8 g/dL (2.4-3.5); Glucose 153 mg/dL (70-105); Potassium 4.1 mmol/L (3.5-5.1); Protein, Total 7.4 g/dL (6.0-8.3); Sodium 133 mmol/L (136-145)
[2018-01-06] MEDS: methylPREDNISolone Sod Succ/PF 125 MG/2 ML VIAL IVP SCH ×2 (05:37→11:46)
[2018-01-06] MEDS: Gabapentin 300 MG CAP PO SCH ×4 (05:37→23:43)
--- NOTE | 2018-01-06 07:59 | PDOC.PN ---
- Subjective Encounter Start Date: 01/06/18 Encounter Start Time: 07:57 Subjective: sob better, still has tingling R hand off and on, drooping R face - Objective Resuscitation Status: Resuscitation Status FULL:Full Resuscitation MAR Reviewed: Yes Vital Signs & Weight: Vital Signs (12 hours) Temp Pulse Resp BP Pulse Ox 01/06/18 07:33 98.1 F 77 15 138/82 98 01/06/18 04:00 98.2 F 72 18 146/85 H 100 01/06/18 00:00 97.9 F 69 15 138/84 100 01/05/18 20:00 100 Weight Admit Weight 191 lb Weight 195 lb 6.4 oz I&O: 01/05/18 01/06/18 01/07/18 06:59 06:59 06:59 Intake Total 1320 1565 Output Total 3100 2440 Balance -8132 -294 Result Diagrams: 01/06/18 03:42 01/06/18 03:42 Phys Exam - Physical Examination Neck: no JVD Respiratory: clear to auscultation bilateral Cardiovascular: RRR, no significant murmur Gastrointestinal: soft, positive bowel sounds Musculoskeletal: no edema, pulses present gives way on strength testing, unreliable Dx/Plan (1) Acute respiratory failure with hypoxia Code(s): J96.01 - ACUTE RESPIRATORY FAILURE WITH HYPOXIA Status: Acute (2) Mild intermittent asthma, uncomplicated Code(s): J45.20 - MILD INTERMITTENT ASTHMA, UNCOMPLICATED Status: Chronic (3) Guillain Marie syndrome Code(s): G61.0 - GUILLAIN-BARRE SYNDROME Status: Acute - Plan difficult, respiraations ok, unreliable on neuro exam -: will ask neuro for FU, discuss with pulmonology * .
[2018-01-06] MEDS: Mometasone/Formoterol 120 PUFF INHALER INH SCH ×2 (08:00→18:29)
[2018-01-06] MEDS: Senokot S 8.6-50 MG TAB PO SCH ×2 (09:14→21:19)
[2018-01-06] MEDS: Multivitamin W/ Minerals 1 TAB PO SCH (09:14)
[2018-01-06] MEDS: Famotidine 20 MG TAB PO SCH ×2 (09:14→21:16)
[2018-01-06] MEDS: Montelukast Sodium 10 mg Tablet PO SCH (09:14)
[2018-01-06] MEDS: Folic Acid 1 MG TAB PO SCH (09:14)
[2018-01-06] MEDS: Azelastine 137 MCG/Spray 30 ML NS SCH ×2 (09:15→21:17)
[2018-01-06] MEDS: ALPRAZolam 0.25 MG TAB PO SCH ×2 (09:15→21:16)
[2018-01-06] MEDS: Bupropion 150 MG XL TAB PO SCH (09:15)
[2018-01-06] MEDS: Cyanocobalamin (Vitamin B-12) 1,000 MCG TAB PO SCH (09:15)
[2018-01-06] MEDS: Midodrine HCl 5 MG TAB PO SCH ×3 (09:16→21:17)
[2018-01-06] MEDS: Enoxaparin Sodium 40 MG/0.4 ML SYRINGE SC SCH (09:16)
[2018-01-06] MEDS: Polyethylene Glycol 3350 17 GM Packet PO SCH (09:17)
--- NOTE | 2018-01-06 09:27 | PRG ---
DATE OF SERVICE: 01/06/2018 This morning the patient is doing well. Pulmonary-main, she still complains of some vague numbness i n the right side of the face. PHYSICAL EXAMINATION: VITAL SIGNS: Her sats are 100% on 3 liters, pulse 96, temperature 98, blood pressure 130/82. CHEST: Chest reveals no wheezing or crackles. CARDIAC: Normal S1, S2, no gallops. ABDOMEN: Soft, no masses. IMPRESSION: 1. Ascending paralysis. 2. Unknown numbness, probably anxiety. I doubt this is a lung nodule problem. 3. Chronic sinus issues. 4. Asthma. PLAN: I have added saline nasal spray, continue Symbicort. Eventually back to rehab.
[2018-01-06] MEDS: Sodium Chloride 0.65% Nasal 44 ML BOT EA NARE SCH ×2 (15:37→21:18)
[2018-01-06] MEDS: traZODone HCl 50 MG TAB PO PRN (23:43)
[2018-01-07 04:25] LABS: #Lymphocytes 2.1 thou/uL (1.20-3.40); #Monocytes 0.7 thou/uL (0.11-0.59); #Neutrophils 4.8 thou/uL (1.40-6.50); %Basophils 0.2 % (0.0-1.0); %Eosinophils 0.4 % (0.0-10.0); %Lymphocytes 27.4 % (21.0-51.0); %Monocytes 8.7 % (0.0-10.0); %Neutrophils 63.4 % (42.0-75.0); Hemoglobin 12.6 g/dL (12.0-16.0); Mean Corpuscular HGB CONC 33.3 g/dL (32.0-36.0); Mean Corpuscular Hemoglobin 30.3 pg (27.0-31.0); Mean Corpuscular Volume 90.8 fL (78.0-98.0); Mean Platelet Volume 8.4 fL (7.4-10.4); Platelet Count 193 thou/uL (130-400); RBC Distribution Width 11.7 % (11.5-14.5); Red Blood Cell (RBC) Count 4.17 mill/uL (4.20-5.40); White Blood Cell (WBC) Count 7.5 thou/uL (4.8-10.8)
[2018-01-07 04:40] LABS: ALT (SGPT) 347 U/L (8-55); AST (SGOT) 51 U/L (5-34); Albumin 3.2 g/dL (3.5-5.0); Alkaline Phosphatase 83 U/L (40-150); Anion Gap 8 mmol/L (10-20); BUN (Urea Nitrogen) 21 mg/dL (9.8-20.1); Bilirubin, Total 0.5 mg/dL (0.2-1.2); Calc. Creatinine Clearance 112 mL/min (70-130); Calcium 8.8 mg/dL (7.8-10.44); Carbon Dioxide 29 mmol/L (22-29); Chloride 100 mmol/L (98-107); Estimated GFR-MDRD 74; Globulin 3.4 g/dL (2.4-3.5); Glucose 94 mg/dL (70-105); Protein, Total 6.6 g/dL (6.0-8.3); Sodium 133 mmol/L (136-145)
[2018-01-07] MEDS: Gabapentin 300 MG CAP PO SCH ×3 (06:10→17:58)
[2018-01-07] MEDS: Mometasone/Formoterol 120 PUFF INHALER INH SCH ×2 (07:50→18:27)
[2018-01-07] MEDS: Bupropion 150 MG XL TAB PO SCH (08:27)
[2018-01-07] MEDS: ALPRAZolam 0.25 MG TAB PO SCH ×2 (08:27→21:19)
[2018-01-07] MEDS: Famotidine 20 MG TAB PO SCH ×2 (08:27→21:19)
[2018-01-07] MEDS: Cyanocobalamin (Vitamin B-12) 1,000 MCG TAB PO SCH (08:27)
[2018-01-07] MEDS: Multivitamin W/ Minerals 1 TAB PO SCH (08:27)
[2018-01-07] MEDS: Folic Acid 1 MG TAB PO SCH (08:28)
[2018-01-07] MEDS: Midodrine HCl 5 MG TAB PO SCH ×3 (08:28→21:19)
[2018-01-07] MEDS: Montelukast Sodium 10 mg Tablet PO SCH (08:28)
[2018-01-07] MEDS: Senokot S 8.6-50 MG TAB PO SCH ×2 (08:28→21:20)
[2018-01-07] MEDS: Polyethylene Glycol 3350 17 GM Packet PO SCH (08:29)
[2018-01-07] MEDS: Enoxaparin Sodium 40 MG/0.4 ML SYRINGE SC SCH (08:29)
[2018-01-07] MEDS: Azelastine 137 MCG/Spray 30 ML NS SCH ×2 (08:29→21:19)
[2018-01-07] MEDS: Sodium Chloride 0.65% Nasal 44 ML BOT EA NARE SCH ×3 (08:30→21:19)
--- NOTE | 2018-01-07 08:42 | PDOC.PN ---
- Subjective Encounter Start Date: 01/07/18 Encounter Start Time: 08:40 Subjective: sob resolved, strength better - Objective Resuscitation Status: Resuscitation Status FULL:Full Resuscitation MAR Reviewed: Yes Vital Signs & Weight: Vital Signs (12 hours) Temp Pulse Resp BP Pulse Ox 01/07/18 08:00 99 01/07/18 07:28 100 01/07/18 07:20 97.8 F 71 16 125/91 H 100 01/07/18 03:53 96.9 F L 62 18 139/97 H 100 01/07/18 00:00 97.0 F L 69 20 153/100 H 100 Weight Admit Weight 191 lb Weight 196 lb 12.8 oz I&O: 01/06/18 01/07/18 01/08/18 06:59 06:59 06:59 Intake Total 1565 310 Output Total 2440 350 Balance -875 -40 Result Diagrams: 01/07/18 04:08 01/07/18 04:08 Phys Exam - Physical Examination Neck: no JVD Respiratory: clear to auscultation bilateral Cardiovascular: RRR, no significant murmur Gastrointestinal: soft, non-tender Musculoskeletal: no edema Dx/Plan (1) Acute respiratory failure with hypoxia Code(s): J96.01 - ACUTE RESPIRATORY FAILURE WITH HYPOXIA Status: Acute (2) Mild intermittent asthma, uncomplicated Code(s): J45.20 - MILD INTERMITTENT ASTHMA, UNCOMPLICATED Status: Chronic (3) Guillain Marie syndrome Code(s): G61.0 - GUILLAIN-BARRE SYNDROME Status: Acute - Plan cont current tx, discuss RT REH[facility] with pulmonology * .
--- NOTE | 2018-01-07 11:07 | PRG ---
DATE OF SERVICE: 01/07/2018 This is a 52-year-old female, this morning she is much improved, no shortness of breath, cough, wheezing, sitting on the side of the bed. Her numbness and weakness has resolved. PHYSICAL EXAMINATION: VITAL SIGNS: Sats 90% on room air, temperature 97, pulse 71, blood pressure_130 /91 CHEST: No wheezing. CARDIAC: Normal S1-S2. No gallops. ABDOMEN: Soft. No masses. IMPRESSION: Status post Guillain [place] with unknown neurological symptoms probably some element of anxiety. PLAN: She appears to be at her baseline. I suggest she could be transferred back to the rehab. JENNIFER
--- NOTE | 2018-01-07 13:49 | EKG ---
Test Reason : Blood Pressure : / mmHG Vent. Rate : 074 BPM Atrial Rate : 074 BPM P-R Int : 154 ms QRS Dur : 082 ms QT Int : 372 ms P-R-T Axes : 054 037 045 degrees QTc Int : 412 ms Normal sinus rhythm with sinus arrhythmia Possible Left atrial enlargement Borderline ECG Confirmed by ADRIENNE KIM, HENNY ([id number]), manager editorial MERLENE SALDANA ([id number]) on 01/07/2018 1:48:27 PM Referred By: Confirmed By:HENNY DELEON MD
[2018-01-08] MEDS: Gabapentin 300 MG CAP PO SCH ×5 (00:12→23:49)
[2018-01-08] MEDS: Mometasone/Formoterol 120 PUFF INHALER INH SCH ×2 (05:46→17:52)
--- NOTE | 2018-01-08 08:07 | PDOC.PN ---
- Subjective Encounter Start Date: 01/08/18 Encounter Start Time: 08:05 Subjective: only complaint is some residual distal nerve discomfort - Objective Resuscitation Status: Resuscitation Status FULL:Full Resuscitation MAR Reviewed: Yes Vital Signs & Weight: Vital Signs (12 hours) Temp Pulse Resp BP Pulse Ox 01/08/18 07:18 97.8 F 75 17 135/86 100 01/08/18 05:46 74 16 100 01/08/18 04:00 97.8 F 78 122/76 99 01/08/18 00:00 97.4 F L 70 17 130/85 100 Weight Admit Weight 191 lb Weight 191 lb 4.8 oz I&O: 01/07/18 01/08/18 01/09/18 06:59 06:59 06:59 Intake Total 310 1290 Output Total 350 3505 Balance -40 -4045 Result Diagrams: 01/07/18 04:08 01/07/18 04:08 Phys Exam - Physical Examination Neck: no JVD Respiratory: clear to auscultation bilateral Cardiovascular: RRR, no significant murmur Gastrointestinal: soft, positive bowel sounds Musculoskeletal: no edema Neurological: non-focal except decreased distal sensation Dx/Plan (1) Acute respiratory failure with hypoxia Code(s): J96.01 - ACUTE RESPIRATORY FAILURE WITH HYPOXIA Status: Resolved (2) Mild intermittent asthma, uncomplicated Code(s): J45.20 - MILD INTERMITTENT ASTHMA, UNCOMPLICATED Status: Chronic (3) Guillain Marie syndrome Code(s): G61.0 - GUILLAIN-BARRE SYNDROME Status: Acute - Plan cont current plan of care, PT/OT DC to rehab pending * .
--- NOTE | 2018-01-08 09:01 | PRG ---
DATE OF SERVICE: 01/08/2018 She is awake, alert, responsive, no shortness of breath. PHYSICAL EXAMINATION: VITAL SIGNS: Sats are 100% on room air, temperature is 97, pulse 75, blood pressure 130/86. CHEST: No wheezing, no crackles. CARDIAC: Normal S1-S2. No gallops. ABDOMEN: Soft. IMPRESSION: 1. Guillain [place]. 2. No respiratory distress. PLAN: Pulmonary main, disposition as per social media project manager, trying to get her back to the rehab.
[2018-01-08] MEDS: Bupropion 150 MG XL TAB PO SCH (09:12)
[2018-01-08] MEDS: Famotidine 20 MG TAB PO SCH ×2 (09:12→20:21)
[2018-01-08] MEDS: Montelukast Sodium 10 mg Tablet PO SCH (09:12)
[2018-01-08] MEDS: Cyanocobalamin (Vitamin B-12) 1,000 MCG TAB PO SCH (09:12)
[2018-01-08] MEDS: Folic Acid 1 MG TAB PO SCH (09:12)
[2018-01-08] MEDS: Multivitamin W/ Minerals 1 TAB PO SCH (09:12)
[2018-01-08] MEDS: ALPRAZolam 0.25 MG TAB PO SCH ×2 (09:12→20:20)
[2018-01-08] MEDS: Senokot S 8.6-50 MG TAB PO SCH ×2 (09:13→20:22)
[2018-01-08] MEDS: Enoxaparin Sodium 40 MG/0.4 ML SYRINGE SC SCH (09:13)
[2018-01-08] MEDS: Sodium Chloride 0.65% Nasal 44 ML BOT EA NARE SCH ×3 (09:14→20:22)
[2018-01-08] MEDS: Polyethylene Glycol 3350 17 GM Packet PO SCH (09:14)
[2018-01-08] MEDS: Midodrine HCl 5 MG TAB PO SCH ×3 (09:17→20:21)
[2018-01-08] MEDS: Azelastine 137 MCG/Spray 30 ML NS SCH ×2 (09:17→20:21)
[2018-01-08] MEDS: Acetaminophen 325 MG TAB PO PRN (16:40)
[2018-01-08] MEDS: traZODone HCl 50 MG TAB PO PRN (23:50)
[2018-01-09] MEDS: Gabapentin 300 MG CAP PO SCH ×3 (05:30→15:54)
[2018-01-09] MEDS: Mometasone/Formoterol 120 PUFF INHALER INH SCH ×2 (07:09→18:15)
[2018-01-09] MEDS: ALPRAZolam 0.25 MG TAB PO SCH ×2 (08:36→20:39)
[2018-01-09] MEDS: Folic Acid 1 MG TAB PO SCH (08:36)
[2018-01-09] MEDS: Multivitamin W/ Minerals 1 TAB PO SCH (08:37)
[2018-01-09] MEDS: Famotidine 20 MG TAB PO SCH ×2 (08:37→20:40)
[2018-01-09] MEDS: Senokot S 8.6-50 MG TAB PO SCH ×2 (08:37→20:41)
[2018-01-09] MEDS: Cyanocobalamin (Vitamin B-12) 1,000 MCG TAB PO SCH (08:37)
[2018-01-09] MEDS: Montelukast Sodium 10 mg Tablet PO SCH (08:38)
[2018-01-09] MEDS: Midodrine HCl 5 MG TAB PO SCH ×3 (08:38→20:40)
[2018-01-09] MEDS: Bupropion 150 MG XL TAB PO SCH (08:38)
[2018-01-09] MEDS: Polyethylene Glycol 3350 17 GM Packet PO SCH (08:38)
[2018-01-09] MEDS: Enoxaparin Sodium 40 MG/0.4 ML SYRINGE SC SCH (08:39)
[2018-01-09] MEDS: Azelastine 137 MCG/Spray 30 ML NS SCH ×2 (08:56→20:40)
--- NOTE | 2018-01-09 09:14 | PRG ---
DATE OF SERVICE: 01/09/2018 This morning, the patient is awake, alert, responsive, in no distress. Still weak. PHYSICAL EXAMINATION: VITAL SIGNS: Sats are 97% on room air, temperature is 98, pulse 90, blood pressure 100/84. CHEST: No wheezing, no crackles. CARDIAC: Normal S1, S2, no gallops. ABDOMEN: Soft. No masses. IMPRESSION: 1. Status post viral syndrome. 2. Guillain [place]. 3. Mildly elevated liver function tests, coming down. 4. Major anxiety. PLAN: Await ____ disposition. Aggressive PT. We will follow at a distance. Please call if needed.
[2018-01-09] MEDS: Sodium Chloride 0.65% Nasal 44 ML BOT EA NARE SCH ×3 (09:15→20:41)
[2018-01-09 09:40] LABS: ALT (SGPT) 236 U/L (8-55); AST (SGOT) 44 U/L (5-34); Albumin 3.5 g/dL (3.5-5.0); Alkaline Phosphatase 91 U/L (40-150); Anion Gap 11 mmol/L (10-20); BUN (Urea Nitrogen) 13 mg/dL (9.8-20.1); Bilirubin, Total 0.5 mg/dL (0.2-1.2); Calc. Creatinine Clearance 97 mL/min (70-130); Calcium 8.9 mg/dL (7.8-10.44); Carbon Dioxide 29 mmol/L (22-29); Chloride 98 mmol/L (98-107); Estimated GFR-MDRD 64; Globulin 3.5 g/dL (2.4-3.5); Glucose 161 mg/dL (70-105); Potassium 3.2 mmol/L (3.5-5.1); Sodium 135 mmol/L (136-145)
[2018-01-09 10:01] LABS: HBCM Index 0.06 S/CO (0-0.79); HBSAg Index 0.22 S/CO (0-0.99); Hep A IgM AB Non-Reactive (NonReactive); Hep A IgM S/CO 0.12 S/CO (0-0.79); Hep B Surf Ag Non-Reactive S/CO (NonReactive); Hep C IgG Ab Non-Reactive (NonReactive); Hep C Index 0.19 S/CO (0-0.79); Hepatitis B Core IGM Abs Non-Reactive (NonReactive)
--- NOTE | 2018-01-09 10:18 | PDOC.PN ---
- Subjective Encounter Start Date: 01/09/18 Encounter Start Time: 08:10 -: old records requested/rev Patient seen and examined. No new complaints. No overnight events - Objective Resuscitation Status: Resuscitation Status FULL:Full Resuscitation MAR Reviewed: Yes Vital Signs & Weight: Vital Signs (12 hours) Temp Pulse Resp BP Pulse Ox 01/09/18 08:00 98.1 F 90 18 132/84 97 01/09/18 07:09 80 16 90 L Weight Admit Weight 191 lb Weight 191 lb 4.8 oz I&O: 01/08/18 01/09/18 01/10/18 06:59 06:59 06:59 Intake Total 1290 250 Output Total 3505 Balance -2215 250 Result Diagrams: 01/07/18 04:08 01/09/18 08:50 Phys Exam - Physical Examination Constitutional: NAD HEENT: PERRLA, moist MMs, sclera anicteric Neck: no JVD, supple Respiratory: no wheezing, no rales, no rhonchi Cardiovascular: RRR, no significant murmur, no rub Gastrointestinal: soft, non-tender, no distention, positive bowel sounds Musculoskeletal: no edema, pulses present Neurological: moves all 4 limbs Lymphatic: no nodes Psychiatric: normal affect Skin: no rash, normal turgor Dx/Plan (1) Guillain Marie syndrome Code(s): G61.0 - GUILLAIN-BARRE SYNDROME Status: Acute (2) Neuropathic pain Code(s): M79.2 - NEURALGIA AND NEURITIS, UNSPECIFIED Status: Acute (3) Transaminitis Code(s): R74.0 - NONSPEC ELEV OF LEVELS OF TRANSAMNS & LACTIC ACID DEHYDRGNSE Status: Acute (4) Anxiety and depression Code(s): F41.9 - ANXIETY DISORDER, UNSPECIFIED; F32.9 - MAJOR DEPRESSIVE DISORDER, SINGLE EPISODE, UNSPECIFIED Status: Chronic (5) Mild intermittent asthma, uncomplicated Code(s): J45.20 - MILD INTERMITTENT ASTHMA, UNCOMPLICATED Status: Chronic (6) Obesity (BMI 30.0-34.9) Code(s): E66.9 - OBESITY, UNSPECIFIED Status: Chronic (7) Acute respiratory failure with hypoxia Code(s): J96.01 - ACUTE RESPIRATORY FAILURE WITH HYPOXIA Status: Resolved (8) Hypokalemia Code(s): E87.6 - HYPOKALEMIA Status: Acute - Plan cont current plan of care, plan discussed w/ family * replace potassium * will get US RUQ for abnormal LFT * check hepatitis profile * discussed with * medication reviewed as below * symptomatic treatment * await rehab placement. Review of Systems - Review of Systems Eyes: negative: Pain, Vision Change, Conjunctivae Inflammation, Eyelid Inflammation, Redness, Other ENT: negative: Ear Pain, Ear Discharge, Nose Pain, Nose Discharge, Nose Congestion, Mouth Pain, Mouth Swelling, Throat Pain, Throat Swelling, Other Respiratory: negative: Cough, Dry, Shortness of Breath, Hemoptysis, SOB with Excertion, Pleuritic Pain, Sputum, Wheezing Cardiovascular: negative: chest pain, palpitations, orthopnea, paroxysmal nocturnal dyspnea, edema, light headedness, other Gastrointestinal: negative: Nausea, Vomiting, Abdominal Pain, Diarrhea, Constipation, Melena, Hematochezia, Other Genitourinary: negative: Dysuria, Frequency, Incontinence, Hematuria, Retention , Other Musculoskeletal: negative: Neck Pain, Shoulder Pain, Arm Pain, Back Pain, Hand Pain, Leg Pain, Foot Pain, Other Skin: negative: Rash, Lesions, Ricardo, Bruising, Other - Medications/Allergies Allergies/Adverse Reactions: Allergies Allergy/AdvReac Type Severity Reaction Status Date / Time Penicillins Allergy Verified 01/04/18 16:37 Medications: Current Medications Acetaminophen (Tylenol) 650 mg PO Q4H PRN PRN Reason: Headache/Fever/Mild Pain (1-3) Last Admin: 01/08/18 16:40 Dose: 650 mg Albuterol/Ipratropium (Duoneb) 3 ml NEB Q4H PRN PRN Reason: SOB &/or Wheezing Alprazolam (Xanax) 0.25 mg PO BID [facility] Last Admin: 01/09/18 08:36 Dose: 0.25 mg Azelastine HCl (Azelastine) 0 ml NS BID [facility] Last Admin: 01/08/18 20:21 Dose: 1 spray Bupropion HCl (Wellbutrin Xl) 150 mg PO DAILY [facility] Last Admin: 01/09/18 08:38 Dose: 150 mg Cyanocobalamin (Vitamin B-12) 1,000 mcg PO DAILY [facility] Last Admin: 01/09/18 08:37 Dose: 1,000 mcg Enoxaparin Sodium (Lovenox) 40 mg SC 0900 [facility] Last Admin: 01/09/18 08:39 Dose: 40 mg Famotidine (Pepcid) 20 mg PO BID [facility] Last Admin: 01/09/18 08:37 Dose: 20 mg Folic Acid (Folvite) 1 mg PO DAILY [facility] Last Admin: 01/09/18 08:36 Dose: 1 mg Gabapentin (Neurontin) 300 mg PO Q6HR [facility] Last Admin: 01/09/18 05:30 Dose: 300 mg Iron/Minerals/Multivitamins (Theragran M) 1 tab PO DAILY [facility] Last Admin: 01/09/18 08:37 Dose: 1 tab Midodrine (Proamatine) 2.5 mg PO TID [facility] Last Admin: 01/09/18 08:38 Dose: 2.5 mg Mometasone Furoate/Formoterol Fumar (Dulera 200 Mcg/5 Mcg Inhaler) 2 puff INH BID-RT [facility] Last Admin: 01/09/18 07:09 Dose: 2 puff Montelukast Sodium (Singulair) 10 mg PO DAILY [facility] Last Admin: 01/09/18 08:38 Dose: 10 mg Ondansetron HCl (Zofran Odt) 4 mg PO Q6H PRN PRN Reason: Nausea/Vomiting Ondansetron HCl (Zofran) 4 mg IVP Q6H PRN PRN Reason: Nausea/Vomiting Polyethylene Glycol (Miralax) 17 gm PO DAILY [facility] Last Admin: 01/09/18 08:38 Dose: 17 gm Senna/Docusate Sodium (Senokot S) 2 tab PO BID [facility] Last Admin: 01/09/18 08:37 Dose: 1 tab Sodium Chloride (Flush - Normal Saline) 10 ml IVF PRN PRN PRN Reason: Saline Flush Sodium Chloride (Lorain Nasal [place] 0.65%) 1 ml EA NARE TID [facility] Last Admin: 01/08/18 20:22 Dose: 2 spr Trazodone HCl (Desyrel) 50 mg PO HS PRN PRN Reason: Insomnia Last Admin: 01/08/18 23:50 Dose: 50 mg
[2018-01-09] MEDS ORDERED: Potassium Chloride 20 MEQ TAB PO SCH (10:30)
[2018-01-09] MEDS: Acetaminophen 325 MG TAB PO PRN ×2 (15:52→20:41)
--- NOTE | 2018-01-09 16:37 | ULT ---
ULTRASOUND ABDOMEN LIMITED: (RIGHT UPPER QUADRANT) 01/09/18 HISTORY: 52-year-old female with "abnormal LFTs." FINDINGS: The gallbladder has normal wall thickness and has no evidence of gallstones or sludge. The hepatic e chogenicity is normal. The right kidney has normal echogenicity and has no hydronephrosis. The panc reas is visualized, although ultrasound is relatively insensitive for pancreatic pathology compared t o CT and MRI. There is no biliary dilation. The common duct caliber is 3 mm. IMPRESSION: Normal. jn [] POS: LINA
[2018-01-10] MEDS: Gabapentin 300 MG CAP PO SCH ×3 (01:00→06:58)
[2018-01-10] MEDS: Mometasone/Formoterol 120 PUFF INHALER INH SCH (06:47)
[2018-01-10] MEDS: Bupropion 150 MG XL TAB PO SCH (08:17)
[2018-01-10] MEDS: Polyethylene Glycol 3350 17 GM Packet PO SCH (08:17)
[2018-01-10] MEDS: Enoxaparin Sodium 40 MG/0.4 ML SYRINGE SC SCH (08:17)
[2018-01-10] MEDS: Senokot S 8.6-50 MG TAB PO SCH (08:17)
[2018-01-10] MEDS: Famotidine 20 MG TAB PO SCH (08:18)
[2018-01-10] MEDS: Folic Acid 1 MG TAB PO SCH (08:18)
[2018-01-10] MEDS: Montelukast Sodium 10 mg Tablet PO SCH (08:18)
[2018-01-10] MEDS: Cyanocobalamin (Vitamin B-12) 1,000 MCG TAB PO SCH (08:18)
[2018-01-10] MEDS: Multivitamin W/ Minerals 1 TAB PO SCH (08:18)
[2018-01-10] MEDS: Midodrine HCl 5 MG TAB PO SCH (08:18)
[2018-01-10] MEDS: ALPRAZolam 0.25 MG TAB PO SCH (08:18)
[2018-01-10] MEDS: Azelastine 137 MCG/Spray 30 ML NS SCH (08:20)
[2018-01-10] MEDS: Sodium Chloride 0.65% Nasal 44 ML BOT EA NARE SCH (08:20)
--- NOTE | 2018-01-10 10:05 | DIS ---
DATE OF ADMISSION: 01/04/2018 DATE OF DISCHARGE: 01/10/2018 PRIMARY CARE PHYSICIAN: Marian Camarena M.D. DISCHARGE DISPOSITION: [facility]. PRIMARY DISCHARGE DIAGNOSES: 1. 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 2. Hypokalemia. 3. Neuropathic pain. 4. Abnormal liver function tests. 5. Acute respiratory failure with hypoxia, resolved. SECONDARY DISCHARGE DIAGNOSES: Obesity with body mass index 30, mild intermittent asthma, anxiety, a nd depression. PRIMARY PROCEDURES/OPERATIONS: Central line placement. RADIOLOGICAL INVESTIGATION: Chest x-ray normal. Abdomen ultrasound negative. SIGNIFICANT LABORATORY DATA: WBC 7.5, hemoglobin 12.6, platelets 193. Sodium 135, potassium 3.2, BU N 13, creatinine 0.91, AST 44, ALT 236, alkaline phosphatase 91, albumin 3.5. Urinalysis normal. He patitis profile negative. DISCHARGE MEDICATIONS: Xanax 0.25 mg p.o. b.i.d., azelastine nasal spray daily, bupropion XL 150 mg p.o. daily, Lovenox 40 mg subcutaneously daily [facility], midodrine 2.5 mg p.o. t.i.d., Singulair 10 mg p.o. daily, multivitamin 1 tablet p.o. daily, Laura Lax 17 grams p.o. daily, trazodone 50 mg p.o. at bedtime, gabapentin 300 mg p.o. q.6 hourly p.r.n., V entolin HFA 2 puffs q.6 hourly p.r.n., vitamin B12 1000 mcg p.o. daily, Pepcid 20 mg p.o. b.i.d., fol ic acid 1 mg p.o. daily, Dulera 2 puffs inhalation b.i.d. CONTRAINDICATIONS: None. CODE STATUS: FULL CODE. INPATIENT CONSULTANTS: Dr. Wu was following, because initially patient was admitted in [facility]. Dr. Aleida Norton, Neurology, was following while in hospital. TEST RESULTS PENDING ON DISCHARGE: None. ALLERGIES: PENICILLIN. DISCHARGE PLAN: Post hospital, the patient will follow up with primary care physician and Dr. Mejia salgado as instructed. HOSPITAL COURSE: This is a 52-year-old female, who was recently admitted in our hospital for acute G uillain-[place]. At that time, patient had lumbar puncture done and diagnosis was confirmed. The vanessa ent was treated with IVIG as well as Solu-Medrol and patient was discharged from the hospital on 08/2017 to rehabilitation. She had a rebounce admission on 01/04/2018, because patient was experienci ng increasing dyspnea. She initially thought maybe related with asthma, but it was not improving. S he had generalized weakness and she kept getting worse. Patient had recurrence of Guillain-[place] syn drome and that is why she was sent from rehab to emergency room. She required IMCU admission. She r equired BiPAP for her respiratory failure. She was treated with high dose of steroid based on Neurol gregoryy recommendation. Neurology and Pulmonology was following while in hospital. The patient was appr opriately treated. At that point, the patient became stable and the patient was transferred to medic al floor. The patient was evaluated by rehab team again and patient was qualified for inpatient rehabilitation. By the time of discharge today, patient is on room air, ambulatory, tolerating p.o. well, and improve d. PHYSICAL EXAMINATION: VITAL SIGNS: Currently, temperature 98.0, pulse 72, respiratory rate 20, saturation 94% on room air, blood pressure 126/85, weight 191 pounds. GENERAL: The patient is currently alert, awake, in no obvious acute distress. LUNGS: Clear to auscultation without any rhonchi or rales. CARDIAC: S1 and S2 regular without any murmur. ABDOMEN: Soft and benign without any tenderness. EXTREMITIES: No edema. NEUROLOGIC: Nonfocal examination. Her negative inspiratory force is also normal. Today, while in hospital, we did hepatitis check, bec ause of abnormal LFT and we did an ultrasound of the gallbladder, which was also normal. She does no t have any tenderness in the right upper quadrant. Today, paperwork for discharge done. Discharge medication reconciliation done. The patient is appro olvin for inpatient rehabilitation. REVIEW OF SYSTEMS: Reviewed with her and negative. Family member discussed with her plan of care. Total time spent on discharge day 32 minutes.
[2018-01-10 10:57] VITALS: BP 133/90; TEMP 97.9
== END 2018-01-10 11:01 | DRG 94 ==
LOC: ERS 08:30 → IMCU/EMU 15:12 → T4-A 01-08 17:44
PROVIDERS: ADMIT Internal Medicine; ATTEND Internal Medicine
PROC: 5A09457 Assistance with Respiratory Ventilation, 24-96 Consecutive Hours, Continuous Positive Airway Pressure (ICD-10-PCS; principal; 2018-01-04)
DX: G61.0 Guillain-Barre syndrome (principal); J96.01 Acute respiratory failure with hypoxia; J45.20 Mild intermittent asthma, uncomplicated; E66.9 Obesity, unspecified; Z68.30 Body mass index [BMI] 30.0-30.9, adult; Z88.8 Allergy status to other drugs, medicaments and biological substances; F41.9 Anxiety disorder, unspecified; G83.9 Paralytic syndrome, unspecified; E87.6 Hypokalemia; F32.9 Major depressive disorder, single episode, unspecified
CPT/HCPCS: 36556; 51702; 71045; 76705; 80053; 80074; 81003; 82553; 82805; 83690; 83735; 84100; 84484; 85025; 93005; 94150; 94660; 96361; 96372; 96374; 96375; G8978-GP-CL; G8979-GP-CJ; G8987-GO-CK; G8988-GO-CJ; J1650; J2930; J3010; J7050

== ENCOUNTER 2018-01-14 12:58 | Emergency (ER) | payer OTHER ==
[2018-01-14] MEDS ORDERED: Lorazepam 2 MG/ML VIAL ONE (13:26)
--- NOTE | 2018-01-14 13:51 | CT ---
CT BRAIN WITHOUT CONTRAST: HISTORY: Seizures. Head trauma. COMPARISON: 12/17/2017 TECHNIQUE: Multiple contiguous axial images were obtained in a CT of the brain without contrast. FINDINGS: The brain is normal in morphology and attenuation, without focal lesions or confluent areas of infarc tion. There is no evidence of hydrocephalus, intracranial hemorrhage, or extraaxial fluid collection . The calvarium and overlying soft tissues are unremarkable. The visualized paranasal sinuses and mast oid air cells are well aerated. IMPRESSION: No evidence of acute intracranial abnormality. POS: [facility]
[2018-01-14 14:14] LABS: #Basophils 0.1 thou/uL (0.0-0.2); #Eosinphils 0.1 thou/uL (0.0-0.7); #Lymphocytes 1.4 thou/uL (1.20-3.40); #Monocytes 0.5 thou/uL (0.11-0.59); #Neutrophils 2.2 thou/uL (1.40-6.50); %Basophils 1.5 % (0.0-1.0); %Eosinophils 2.5 % (0.0-10.0); %Lymphocytes 32.7 % (21.0-51.0); %Monocytes 11.1 % (0.0-10.0); %Neutrophils 52.1 % (42.0-75.0); Hemoglobin 12.2 g/dL (12.0-16.0); Mean Corpuscular HGB CONC 33.5 g/dL (32.0-36.0); Mean Corpuscular Hemoglobin 30.3 pg (27.0-31.0); Mean Corpuscular Volume 90.5 fL (78.0-98.0); Mean Platelet Volume 7.5 fL (7.4-10.4); Platelet Count 175 thou/uL (130-400); RBC Distribution Width 11.9 % (11.5-14.5); Red Blood Cell (RBC) Count 4.01 mill/uL (4.20-5.40); White Blood Cell (WBC) Count 4.2 thou/uL (4.8-10.8)
[2018-01-14 14:40] LABS: ALT (SGPT) 233 U/L (8-55); AST (SGOT) 107 U/L (5-34); Albumin 3.3 g/dL (3.5-5.0); Alkaline Phosphatase 103 U/L (40-150); Anion Gap 9 mmol/L (10-20); BUN (Urea Nitrogen) 8 mg/dL (9.8-20.1); Bilirubin, Total 0.3 mg/dL (0.2-1.2); Calc. Creatinine Clearance 0 mL/min (70-130); Calcium 8.6 mg/dL (7.8-10.44); Carbon Dioxide 25 mmol/L (22-29); Chloride 105 mmol/L (98-107); Estimated GFR-MDRD 79; Globulin 3.1 g/dL (2.4-3.5); Glucose 92 mg/dL (70-105); Potassium 3.5 mmol/L (3.5-5.1); Protein, Total 6.4 g/dL (6.0-8.3); Sodium 135 mmol/L (136-145)
[2018-01-14 16:18] LABS: CKMB 0.4 ng/mL (0-6.6); Troponin I Less than 0.010 ng/mL (< 0.028)
--- NOTE | 2018-01-17 12:18 | EKG ---
Test Reason : Blood Pressure : / mmHG Vent. Rate : 067 BPM Atrial Rate : 067 BPM P-R Int : 164 ms QRS Dur : 080 ms QT Int : 400 ms P-R-T Axes : 055 032 045 degrees QTc Int : 422 ms Normal sinus rhythm Possible Left atrial enlargement Borderline ECG Confirmed by KAYLEY LOPEZ ([id number]), television news video editor MERLENE SALDANA ([id number]) on 01/17/2018 12:17:41 PM Referred By: Confirmed By:KAYLEY LOPEZ
== END 2018-01-14 15:17 | disposition home or self-care (01) ==
LOC: ERS 12:58
DX: R56.9 Unspecified convulsions (principal); I10 Essential (primary) hypertension; J45.909 Unspecified asthma, uncomplicated; F41.9 Anxiety disorder, unspecified; F32.9 Major depressive disorder, single episode, unspecified; Z79.899 Other long term (current) drug therapy
CPT/HCPCS: 70450; 80053; 82553; 84484; 85025; 93005; 96374; J2060

== ENCOUNTER 2018-04-23 10:16 | Outpatient (CLI) | payer OTHER ==
[~2018-04-23 10:16] MED LIST: Gadobenate Dimeglumine 529 MG/1 ML (20ML VIAL) ONE
--- NOTE | 2018-04-23 15:33 | MRI ---
MRI OF BRAIN WITH AND WITHOUT IV CONTRAST: 04/23/18 HISTORY: Ataxic gait, bilateral arm weakness and neck pain. FINDINGS: No restricted diffusion is seen. No evidence of infarct, hemorrhage, mass, midline shift, or abnormal extra-axial fluid collections are noted. The ventricular size is normal and the basilar cisterns pat ent. No abnormal postcontrast enhancement is seen. The visualized paranasal sinuses and mastoid air c ells are well aerated. IMPRESSION: Normal exam. POS: OFF
--- NOTE | 2018-04-23 15:37 | MRI ---
MRI CERVICAL SPINE WITH AND WITHOUT IV CONTRAST: DATE: 04/23/2018. HISTORY: Ataxic gait. COMPARISON: None available. FINDINGS: Limited visualized base of the brain has a normal MRI appearance. The cervicomedullary junction demo nstrates normal signal intensity. Normal signal intensity is demonstrated in the bone marrow. C2-3 level: There is no disk bulge or disk herniation. Central spinal canal and neural foramen are patent. C3-4 level: There is minimal disk-osteophyte complex without significant narrowing of the central sp inal canal. There are mild facet hypertrophic changes on the right resulting in mild encroachment of the right neural foramen. The left neural foramen is patent. C4-5 level: There is no significant disk bulge or disk herniation. Facet degenerative changes are p resent on the left, but there is no significant narrowing of the neural foramina, and the central spi nal canal is patent. There is mild left-sided neural foraminal narrowing due to facet degenerative c hanges. C5-6 level: There is a mild disk-osteophyte complex slightly effacing the ventral subarachnoid space . The neural foramina are patent. C6-7 level: There is minimal disk-osteophyte complex resulting in slight effacement of the ventral a spect of the thecal sac. Neural foramina are patent. C7-T1 level: There is no disk bulge or disk herniation. The central spinal canal and neural foramin a are patent. Paravertebral soft tissues demonstrate a normal MRI appearance. No abnormal areas of enhancement are seen after the administration of intravenous contrast. There is a T1 hyperintense lesion seen in the right lobe of the thyroid gland. This nodule measures 1.5 cm. However, this nodule is only seen on the post-enhanced images and is obscured on the pre-cont rast images. Thyroid ultrasound is recommended for further evaluation. IMPRESSION: 1. Right thyroid nodule which is only seen on postcontrast T1 weighted images. Further evaluation w ith thyroid ultrasound is recommended. 2. Mild degenerative changes in the cervical spine. There is no significant narrowing of the centra l spinal canal or neural foramina. POS: [facility]
== END 2018-04-23 10:17 | disposition home or self-care (01) ==
LOC: MRI 10:16 → SCSMRI 10:17
DX: R26.0 Ataxic gait (principal); M47.812 Spondylosis without myelopathy or radiculopathy, cervical region; E04.1 Nontoxic single thyroid nodule
CPT/HCPCS: 70553; 72156; A9577

== ENCOUNTER 2018-05-25 13:48 | Outpatient (CLI) | payer OTHER ==
--- NOTE | 2018-05-25 15:24 | ULT ---
ULTRASOUND THYROID STANDARD: HISTORY: Thyroid nodule seen on recent MRI. COMPARISON: MRI of 04/05/2018. TECHNIQUE: Real-time, chavez scale, and color evaluation of the thyroid was performed. FINDINGS: The right lobe measures 1.8 x 3.5 x 1.8 cm and the left side measures 1.3 x 3.7 x 1.1 cm. Isthmus me asures 4 mm in AP dimension. In the interpolar region of the right lobe of the thyroid is a wider than all hypoechoic solid mass w ith internal vascularity measuring 2.2 x 1.3 x 1.4 cm. This is somewhat of a bilobed mass versus les s likely 2 separate nodules which abut each other. No internal calcifications. The margins are smoo th. No other thyroid nodule is appreciated. IMPRESSION: Solid dominant nodule in the right lobe of the thyroid which appears bilobed. The TIRAD is 4: moder ately suspicious. Fine needle aspiration is recommended given its size. CODE T POS: [facility]
== END 2018-05-25 13:49 | disposition home or self-care (01) ==
LOC: SCSULT 13:48
PROVIDERS: ATTEND Internal Medicine
DX: E04.1 Nontoxic single thyroid nodule (principal)
CPT/HCPCS: 76536